=== PATIENT | female | born 1985 | race Caucasian/White ===

== ENCOUNTER 2017-04-07 16:53 | Emergency (ER) | payer OTHER ==
[~2017-04-07] VITALS: Ht 162.6 cm; Wt 81.6 kg
[2017-04-07] MEDS ORDERED: PANTOPRAZOLE IV PUSH 40 MG VIAL. IVP ONE (17:15)
[2017-04-07] MEDS ORDERED: LIDO:MAALOX 1:1 20 ML SINGLE DOSE PO ONE (17:15)
--- NOTE | 2017-04-07 17:42 | PHYS DOC ---
Past History Past Medical History: Anxiety, Depression, Kidney Stones Past Surgical History: Other Alcohol Use: None Drug Use: None Adult General Chief Complaint Chief Complaint: ABDOMINAL PAIN HPI HPI Patient is a 32-year-old female presenting to the emergency department for evaluation of abdominal pain nausea that has been going on for approximately one month. Patient says it is more generalized in her umbilical area and goes up into her epigastrium and chest as well. Eating and that foods make it worse. Is that it felt quite intense today after eating sonic and that she had referred pain into her right scapular region. She has nausea but no vomiting and says she feels somewhat better now. Been taking Zantac twice daily along with Tums and Maalox in says that she is concerned may be something else going on as this is not quite helping enough. He denies any fevers chills diarrhea constipation dysuria hematuria or abnormal vaginal discharge. Says that her periods have been somewhat more heavy over the past several months. She has had 3 C-sections but no other abdominal surgeries. She is nontoxic appearing in no obvious distress with normal vital signs. Review of Systems Review of Systems Constitutional: Denies fever or chills [] Respiratory: Denies cough or shortness of breath [] Cardiovascular: No additional information not addressed in HPI [] GI: + abdominal pain, nausea. No vomiting, bloody stools or diarrhea [] : Denies dysuria or hematuria [] Musculoskeletal: Denies back pain or joint pain [] Current Medications Current Medications Current Medications Medications (Trade) Dose Ordered Sig/[facility] Start Time Stop Time Status Last Admin Dose Admin Multi-Ingredient Mouthwash/Gargle (Gi Cocktail) 20 ml 1X ONCE 04/07/17 17:15 04/07/17 17:16 UNV Pantoprazole Sodium (Protonix Vial) 40 mg 1X ONCE 04/07/17 17:15 04/07/17 17:16 UNV Physical Exam Physical Exam Constitutional: Well developed, well nourished, no acute distress, non-toxic appearance. [] Cardiovascular:Heart rate regular rhythm, no murmur [] Lungs & Thorax: Bilateral breath sounds clear to auscultation [] Abdomen: Bowel sounds normal, soft, positive upper abdominal tenderness most prominent in the epigastrium and right upper quadrant, no rebound or guarding, no masses, no pulsatile masses. [] Skin: Warm, dry, no erythema, no rash. [] Back: No tenderness, no CVA tenderness. [] Current Patient Data Vital Signs Vital Signs Date Time Temp Pulse Resp B/P (MAP) Pulse Ox O2 Delivery O2 Flow Rate FiO2 04/07/17 17:04 98.0 82 22 100 Lab Results Laboratory Tests Test 04/07/17 14:49 04/07/17 17:12 04/07/17 17:28 White Blood Count 8.6 x10^3/uL Red Blood Count 4.48 x10^6/uL Hemoglobin 12.4 g/dL Hematocrit 37.2 % Mean Corpuscular Volume 83 fL Mean Corpuscular Hemoglobin 28 pg Mean Corpuscular Hemoglobin Concent 34 g/dL Red Cell Distribution Width 15.2 % Platelet Count 291 x10^3/uL Neutrophils (%) (Auto) 54 % Lymphocytes (%) (Auto) 38 % Monocytes (%) (Auto) 7 % Eosinophils (%) (Auto) 1 % Basophils (%) (Auto) 1 % Neutrophils # (Auto) 4.6 x10^3uL Lymphocytes # (Auto) 3.3 x10^3/uL Monocytes # (Auto) 0.6 x10^3/uL Eosinophils # (Auto) 0.1 x10^3/uL Basophils # (Auto) 0.1 x10^3/uL Sodium Level 138 mmol/L Potassium Level 3.7 mmol/L Chloride Level 104 mmol/L Carbon Dioxide Level 21 mmol/L Anion Gap 13 Blood Urea Nitrogen 13 mg/dL Creatinine 0.8 mg/dL Estimated GFR (Cockcroft-Gault) 82.6 BUN/Creatinine Ratio 16 Glucose Level 107 mg/dL Calcium Level 9.3 mg/dL Total Bilirubin 0.2 mg/dL Aspartate Amino Transf (AST/SGOT) 25 U/L Alanine Aminotransferase (ALT/SGPT) 18 U/L Alkaline Phosphatase 66 U/L Total Protein 7.2 g/dL Albumin 3.7 g/dL Albumin/Globulin Ratio 1.1 Lipase 154 U/L Urine Collection Type Unknown Urine Color Yellow Urine Clarity Hazy Urine pH 8.5 Urine Specific [place] 1.015 Urine Protein Neg Urine Glucose (UA) Neg mg/dL Urine Ketones (Stick) Neg mg/dL Urine Blood Neg Urine Nitrite Neg Urine Bilirubin Neg Urine Urobilinogen Dipstick 0.2 mg/dL Urine Leukocyte Esterase Trace Urine RBC 3-5 /HPF Urine WBC 5-10 /HPF Urine Squamous Epithelial Cells Many /LPF Urine Amorphous Sediment Present /HPF Urine Bacteria Few /HPF Bedside Urine HCG, Qualitative hcg negative Current Medications Medications (Trade) Dose Ordered Sig/Rekha Route PRN Reason Start Time Stop Time Status Last Admin Dose Admin Multi-Ingredient Mouthwash/Gargle (Gi Cocktail) 20 ml 1X ONCE PO 04/07/17 17:15 04/07/17 18:21 DC 04/07/17 17:57 Pantoprazole Sodium (Protonix Vial) 40 mg 1X ONCE IVP 04/07/17 17:15 04/07/17 18:21 DC 04/07/17 17:56 Sodium Chloride 1,000 ml @ As Directed STK-MED ONCE .ROUTE 04/07/17 17:48 04/07/17 17:49 DC Sodium Chloride 1,000 ml @ 1,000 mls/hr 1X ONCE IV 04/07/17 18:00 04/07/17 18:59 DC 04/07/17 17:56 Laboratory Tests Test 04/07/17 17:28 POC Urine HCG, Qualitative hcg negative (Negative) EKG EKG Not performed[] Radiology/Procedures Radiology/[place] [address] IMAGING REPORT Signed PATIENT: ISMAEL LEVI ACCOUNT: [id number] : 1985 LOCATION: ER AGE: 32 SEX: F EXAM STATUS: REG ER ORD. PHYSICIAN: CHELSIE LUIS DO REASON: RUQ PAIN PROCEDURE: ABDOMEN LTD EXAM: Abdomen sonogram limited. HISTORY: Pain. TECHNIQUE: Sonographic imaging of the abdomen was performed. COMPARISON: None. FINDINGS: The liver is normal in size. No focal hepatic lesion is seen. The gallbladder is unremarkable. The common bile duct is normal in caliber. The right kidney, pancreas, and inferior vena cava are unremarkable. The aorta is not formally assessed. IMPRESSION: 1. Upper normal common bile duct caliber. 2. Otherwise, unremarkable abdomen sonogram. Electronically signed by: Maryanne Carrizales MD (04/07/2017 7:16 PM) [facility] DICTATED AND SIGNED BY: MARYANNE CARRIZALES MD DATE: 04/07/171913 CC: SHAMA RODRIGUEZ MD; NON,STAFF; CHELSIE LUIS DO ~ [] Course & Med Decision Making Course & Med Decision Making Symptoms are most consistent with gastritis and/or esophagitis my opinion. I do not suspect gallbladder pathology although this is what the patient is concerned about. Will get ultrasound and check labs and urine at this time. If negative can likely go home I recommended trying Prilosec twice daily instead of Zantac with GI follow-up as she may have H. pylori or an ulcerative disease. Given ultrasound and labs are still pending will transfer care to Dr. Rodriguez while awaiting results of tests. Addendum by Dr. Shama Rodriguez M.D.: I took over care patient at 1805. I followed up with the patient's blood testing and ultrasound imaging. Patient showed no evidence of cholelithiasis. Patient's lab work shows no evidence of hepatitis or pancreatitis. On my evaluation, patient states that her symptoms have significantly improved after GI cocktail. The patient states she feels well and would like to go home. Recommended follow-up with the patient's primary doctor in 3 days for reevaluation and recommended that patient likely receive referral to a hoop punch and coiler operator helper for further evaluation in the next 1-2 weeks. I commended return emergency department for any worsening symptoms. Advised the patient started on twice a day Prilosec therapy until patient has followed up with gastroenterology. The patient voiced understanding and in agreement with treatment plan upon discharge. Dragon Disclaimer Dragon Disclaimer This chart was dictated in whole or in part using Voice Recognition software in a busy, high-work load, and often noisy Emergency Department environment. It may contain unintended and wholly unrecognized errors or omissions. Departure Departure: Impression: Primary Impression: Abdominal pain Additional Impression: Nausea alone Disposition: HOME, SELF-CARE Condition: IMPROVED Referrals: NON,STAFF (PCP) Patient Instructions: Abdominal Pain (Nonspecific) Additional Instructions: Follow-up he primary doctor in 3 days for reevaluation. You will need to schedule an appointment with gastroenterology in the next 1-2 weeks for further evaluation of the etiology of your pain as it is suspected you have continued gastritis or even possible peptic ulcer disease. Use Prilosec twice daily as recommended until you have obtained gastroenterology follow-up. Return to the emergency department for any worsening symptoms. Scripts Omeprazole Magnesium (PRILOSEC OTC) 20 Mg Tablet.dr 1 TAB PO BID, #60 TAB 0 Refills Prov: SHAMA RODRIGUEZ MD 04/07/17 Problem Qualifiers Primary Impression: Abdominal pain Abdominal location: upper abdomen, unspecified Qualified Codes: R10.10 - Upper abdominal pain, unspecified CHELSIE LUIS DO Apr 07, 2017 17:42 SHAMA RODRIGUEZ MD Apr 07, 2017 19:45
[2017-04-07] MEDS ORDERED: IV NORMAL SALINE 1,000ML 1,000 ML ONE (17:48)
[2017-04-07] MEDS ORDERED: IV NORMAL SALINE 1,000ML 1,000 ML IV ONE (18:00)
[2017-04-07 18:12] LABS: BASO # 0.1 x10^3/uL (0.0-0.2); BASO % 1 % (0-3); EOS # 0.1 x10^3/uL (0.0-0.7); EOS % 1 % (0-3); HEMATOCRIT 37.2 % (36.0-47.0); HEMOGLOBIN 12.4 g/dL (12.0-15.5); LYMPH # 3.3 x10^3/uL (1.0-4.8); LYMPH % 38 % (24-48); MEAN CORPUSCULAR HEMOGLOBIN 28 pg (25-35); MEAN CORPUSCULAR HGB CONC 34 g/dL (31-37); MEAN CORPUSCULAR VOLUME 83 fL (79-100); MONO # 0.6 x10^3/uL (0.0-1.1); MONO % 7 % (0-9); NEUT # 4.6 x10^3uL (1.8-7.7); NEUT % 54 % (31-73); PLATELET COUNT 291 x10^3/uL (140-400); RED BLOOD COUNT 4.48 x10^6/uL (3.50-5.40); RED CELL DISTRIBUTION WIDTH 15.2 % (11.5-14.5); WHITE BLOOD COUNT 8.6 x10^3/uL (4.0-11.0)
[2017-04-07 18:19] LABS: BILIRUBIN,URINE NEG (NEG); CLARITY,URINE HAZY; COLOR,URINE YELLOW; GLUCOSE,URINE NEG (NEG)
[2017-04-07 18:20] LABS: NITRITE,URINE NEG (NEG); UROBILINOGEN,URINE 0.2 mg/dL (0.2 mg/dL)
[2017-04-07 18:21] LABS: ALBUMIN 3.7 g/dL (3.4-5.0); ALBUMIN/GLOBULIN RATIO 1.1 (1.0-1.7); CALCIUM 9.3 mg/dL (8.5-10.1); CREATININE 0.8 mg/dL (0.6-1.0); GFR 82.6; POTASSIUM 3.7 mmol/L (3.5-5.1); TOTAL BILIRUBIN 0.2 mg/dL (0.2-1.0); TOTAL PROTEIN 7.2 g/dL (6.4-8.2)
[2017-04-07 18:28] LABS: BACTERIA,URINE FEW /HPF (0-FEW); SQUAMOUS EPITHELIAL CELL,UR MANY /LPF
[2017-04-07 18:29] LABS: AMORPHOUS SEDIMENT,UR PRESENT /HPF
[2017-04-07 18:33] VITALS: BP 117/63
--- NOTE | 2017-04-07 19:19 | RAD ---
EXAM: Abdomen sonogram limited. HISTORY: Pain. TECHNIQUE: Sonographic imaging of the abdomen was performed. COMPARISON: None. FINDINGS: The liver is normal in size. No focal hepatic lesion is seen. The gallbladder is unremarkable. The common bile duct is normal in caliber. The right kidney, pancreas, and inferior vena cava are unremarkable. The aorta is not formally assessed. IMPRESSION: 1. Upper normal common bile duct caliber. 2. Otherwise, unremarkable abdomen sonogram. Electronically signed by: Maryanne Mendez MD (04/07/2017 7:16 PM) [facility]
[2017-04-07] MEDS ORDERED: OMEP20TA63 PO (19:45)
== END 2017-04-07 19:56 | disposition home or self-care (01) ==
LOC: ER 16:53
DX: R10.33 Periumbilical pain (principal); R10.11 Right upper quadrant pain; R11.0 Nausea; Z87.442 Personal history of urinary calculi
CPT/HCPCS: 36415; 76705; 80053; 81001; 81025; 83690; 85025; 87086; 96361; 96374; 99285; C9113; J7030

== ENCOUNTER 2017-08-26 08:22 | Emergency (ER) | payer OTHER ==
[~2017-08-26] VITALS: Ht 170.2 cm; Wt 83.0 kg
[~2017-08-26 08:22] MED LIST: OMEP20TA63 PO
[2017-08-26 08:36] VITALS: BP 144/76
[2017-08-26] MEDS ORDERED: IV NORMAL SALINE 1,000ML 1,000 ML IV SCH (09:03)
--- NOTE | 2017-08-26 09:25 | RAD ---
EXAM: Chest, 2 views. HISTORY: Weakness. COMPARISON: None. FINDINGS: Frontal and lateral views of the chest are obtained. There is no infiltrate, effusion or pneumothorax. The heart is normal in size. IMPRESSION: No acute pulmonary finding.
--- NOTE | 2017-08-26 09:33 | PHYS DOC ---
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 Patient states that she's had intermittent mild headaches, generalized fatigue and somnolence symptoms, dizziness, and anhedonia for the past week. 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 SIGECAPS grossly positive for depression denies suicidal or homicidal ideation. Patient has history of anemia and thinks that may be the cause of her symptoms. No chest pain shortness of breath fever chills sweats or myalgias no nausea vomiting or diarrhea no other symptoms. ED vital signs are stable Timing/Duration: other Severity: severe Modifying Factors: worse with movement, improves with rest Associated Symptoms: other Allergies: Coded Allergies: No Known Drug Allergies (Unverified , 04/07/17) Past Medical History Medical History: other (anemia, anxiety, depression) Surgical History: noncontributory Social History Smoker: non-smoker Alcohol: none Drugs: none Review of Systems Constitutional: see HPI Respiratory: denies cough, denies shortness of breath Cardiovascular: denies chest pain, denies palpitations Gastrointestinal: denies abdominal pain, denies nausea, denies vomiting Genitourinary: denies dysuria, denies frequency, denies hematuria Musculoskeletal: denies back pain, denies joint swelling, denies neck pain Psychiatric/Neurological: see HPI Physical Exam General Appearance: WD/WN, no apparent distress Eyes: bilateral eye normal inspection, bilateral eye PERRL, bilateral eye EOMI Ear, Nose, Throat: hearing grossly normal, normal ENT inspection, normal pharynx Neck: non-tender, supple Respiratory: normal breath sounds, no respiratory distress Cardiovascular: normal peripheral pulses, regular rate, rhythm Gastrointestinal: non tender, soft Back: no CVA tenderness, no vertebral tenderness Extremities: non-tender, normal inspection Neurologic/Psychiatric: supervisor plastering II-XII nml as tested, no motor/sensory deficits, alert, oriented x 3, depressed affect, other (denies suicidal or homicidal ideation) Skin: normal color, warm/dry Orders, Labs, Meds EKG: Normal sinus rhythm 70 bpm, nonspecific T contour abnormality no ST segment elevation. Interpreted by me. PATIENT: ISMAEL LEVI ACCOUNT: [id number] : 1985 LOCATION: ER AGE: 32 SEX: F EXAM STATUS: REG ER ORD. PHYSICIAN: CARIDAD SANTAMARIA DO REASON: weak PROCEDURE: CHEST PA & LATERAL EXAM: Chest, 2 views. HISTORY: Weakness. COMPARISON: None. FINDINGS: Frontal and lateral views of the chest are obtained. There is no infiltrate, effusion or pneumothorax. The heart is normal in size. IMPRESSION: No acute pulmonary finding. DICTATED AND SIGNED BY: ELINOR CARRIZALES MD DATE: 08/26/17922 CC: NON,STAFF; CARIDAD SANTAMARIA DO ~ Squamous cell contamination with products of infection noted in the urine. Patient would like to be treated versus waiting for culture I discussed findings in detail with the patient. Advised her to follow up with her doctor to check for vitamin deficiencies as well as thyroid disease. Also discussed exercise and possible counseling or depression treatment. Signs and symptoms to monitor as well as indications for urgent return to the department were discussed the patient's questions were answered she expressed agreement and understanding with the treatment plan. Departure Time of Disposition: 11:24 Disposition: HOME, SELF-CARE Diagnosis: UTI, generalized fatigue, mood disorder Condition: STABLE Patient Instructions: Urinary Tract Infection, [id number] Additional Instructions: Aggressively hydrate with Gatorade or water. Fzym-ghk-[id number] Tylenol as needed. Prescription: Bactrim DS, Pyridium Off work today and tomorrow, note given. Follow-up with your doctor on Monday for recheck of current symptoms and to discuss TSH, vitamin levels, and other further testing as an outpatient. Return to ED with new or changing symptoms. CARIDAD SANTAMARIA DO Aug 26, 2017 09:32
[2017-08-26 10:04] LABS: BASO # 0.1 x10^3/uL (0.0-0.2); BASO % 1 % (0-3); EOS # 0.1 x10^3/uL (0.0-0.7); EOS % 1 % (0-3); HEMATOCRIT 36.7 % (36.0-47.0); HEMOGLOBIN 12.1 g/dL (12.0-15.5); LYMPH # 2.9 x10^3/uL (1.0-4.8); LYMPH % 45 % (24-48); MEAN CORPUSCULAR HEMOGLOBIN 28 pg (25-35); MEAN CORPUSCULAR HGB CONC 33 g/dL (31-37); MEAN CORPUSCULAR VOLUME 83 fL (79-100); MONO # 0.5 x10^3/uL (0.0-1.1); MONO % 7 % (0-9); NEUT % 46 % (31-73); PLATELET COUNT 257 x10^3/uL (140-400); RED BLOOD COUNT 4.42 x10^6/uL (3.50-5.40); RED CELL DISTRIBUTION WIDTH 15.6 % (11.5-14.5); WHITE BLOOD COUNT 6.5 x10^3/uL (4.0-11.0)
[2017-08-26 10:13] LABS: BACTERIA,URINE FEW /HPF (0-FEW); BILIRUBIN,URINE NEG (NEG); CLARITY,URINE CLEAR; COLOR,URINE YELLOW; GLUCOSE,URINE NEG (NEG); NITRITE,URINE NEG (NEG); SQUAMOUS EPITHELIAL CELL,UR FEW /LPF; UROBILINOGEN,URINE 0.2 mg/dL (0.2 mg/dL)
[2017-08-26 11:05] LABS: ALBUMIN 3.3 g/dL (3.4-5.0); ALBUMIN/GLOBULIN RATIO 0.9 (1.0-1.7); C REACTIVE PROTEIN 3.7 mg/L (0-3.3); CALCIUM 8.7 mg/dL (8.5-10.1); CREATININE 0.8 mg/dL (0.6-1.0); GFR 82.6; MAGNESIUM 1.8 mg/dL (1.8-2.4); POTASSIUM 4.3 mmol/L (3.5-5.1); TOTAL BILIRUBIN 0.1 mg/dL (0.2-1.0); TOTAL PROTEIN 6.8 g/dL (6.4-8.2)
--- NOTE | 2017-08-26 11:06 | EKG ---
[address] [address] Test Date: 2017-08-26 Test Time: 10:44:21 Pat Name: ISMAEL LEVI Department: Room: Gender: F Glycerin Operator: LUPE : 1985 Requested By: CARIDAD SANTAMARIA Order Number: [id number] Reading MD: Hayder Burt MD Measurements Intervals [place] Rate: 70 P: 41 NV: 174 QRS: 56 QRSD: 90 T: 26 QT: 414 QTc: 450 Interpretive Statements SINUS RHYTHM Electronically Signed On 09-03-2017 23:43:19 VOLCANOLOGY TEACHER by Hayder Burt MD
[2017-08-26] MEDS ORDERED: KETOROLAC 30 MG/ML VIAL. ONE (11:17)
[2017-08-26] MEDS ORDERED: PHEN100T82 PO (11:24)
[2017-08-26] MEDS ORDERED: SULF1TAB24 PO (11:24)
== END 2017-08-26 11:52 | disposition home or self-care (01) ==
LOC: ER 08:22
DX: R53.83 Other fatigue (principal); N39.0 Urinary tract infection, site not specified; R51 Headache; F39 Unspecified mood [affective] disorder; F41.9 Anxiety disorder, unspecified; F32.9 Major depressive disorder, single episode, unspecified; Z86.2 Personal history of diseases of the blood and blood-forming organs and certain disorders involving the immune mechanism
CPT/HCPCS: 36415; 71046; 80053; 81001; 82550; 83735; 84484; 85025; 86140; 87086; 93005; 96360; 99285-25; J7030

== ENCOUNTER 2018-04-15 10:51 | Emergency (ER) | payer OTHER ==
[~2018-04-15] VITALS: Ht 170.2 cm; Wt 82.6 kg
[~2018-04-15 10:51] MED LIST changes: +PHEN100T82 PO; +SULF1TAB24 PO
[2018-04-15] MEDS ORDERED: CITA40TA12 PO (11:01)
[2018-04-15] MEDS ORDERED: ALPR0.25 PO (11:01)
[2018-04-15] MEDS ORDERED: QUET25TA5 PO (11:01)
[2018-04-15] MEDS ORDERED: IV NORMAL SALINE 1,000ML 1,000 ML IV ONE (11:15)
[2018-04-15] MEDS ORDERED: KETOROLAC 30 MG/ML VIAL. IV ONE (11:45)
[2018-04-15] MEDS ORDERED: METOCLOPRAMIDE HCL 10 MG/2 ML VIAL. IV ONE (11:45)
[2018-04-15] MEDS ORDERED: DEXAMETHASONE SOD PHOS 4 MG/ML VIAL IV ONE (11:45)
[2018-04-15 11:50] LABS: BASO # 0.1 x10^3/uL (0.0-0.2); BASO % 1 % (0-3); EOS # 0.1 x10^3/uL (0.0-0.7); EOS % 1 % (0-3); HEMATOCRIT 37.6 % (36.0-47.0); HEMOGLOBIN 12.9 g/dL (12.0-15.5); LYMPH # 2.3 x10^3/uL (1.0-4.8); LYMPH % 37 % (24-48); MEAN CORPUSCULAR HEMOGLOBIN 29 pg (25-35); MEAN CORPUSCULAR HGB CONC 34 g/dL (31-37); MEAN CORPUSCULAR VOLUME 86 fL (79-100); MONO # 0.4 x10^3/uL (0.0-1.1); MONO % 7 % (0-9); NEUT # 3.4 x10^3uL (1.8-7.7); NEUT % 55 % (31-73); PLATELET COUNT 257 x10^3/uL (140-400); RED BLOOD COUNT 4.38 x10^6/uL (3.50-5.40); RED CELL DISTRIBUTION WIDTH 13.5 % (11.5-14.5); WHITE BLOOD COUNT 6.3 x10^3/uL (4.0-11.0)
[2018-04-15 11:54] LABS: CALCIUM 9.3 mg/dL (8.5-10.1); CREATININE 0.9 mg/dL (0.6-1.0); GFR 71.7; POTASSIUM 3.9 mmol/L (3.5-5.1)
[2018-04-15 12:09] VITALS: BP 99/48
[2018-04-15] MEDS ORDERED: ONDA4TAB10 SL (12:31)
[2018-04-15] MEDS ORDERED: BUTA1CAP31 PO (12:31)
--- NOTE | 2018-04-15 12:31 | PHYS DOC ---
Past History Past Medical History: Anemia, Anxiety, Depression, Kidney Stones Past Surgical History: Alcohol Use: None Drug Use: None Adult General Chief Complaint Chief Complaint: HEADACHE HPI HPI Patient is a 33 year old female who presents with complaining of headache. Patient states she has had history of migraine headaches and complaining of headache for the last 3 days as a constant pain in the bitemporal and frontal area associated with nausea , photophobia and phonophobia. Patient denies fever and chills, neck pain, focal neuro deficit. Patient states she usually gets headache only on her frontal area. Patient states she took wtsi-ntz-[id number] migraine medication without improvement of her pain unlike her usual episodes of migraine headache. Patient rated her pain 8/10. Review of Systems Review of Systems Constitutional: Denies fever or chills [] Eyes: Denies change in visual acuity, redness, or eye pain [] HENT: Denies nasal congestion or sore throat [] Respiratory: Denies cough or shortness of breath [] Cardiovascular: No additional information not addressed in HPI [] GI: Denies abdominal pain, vomiting, bloody stools or diarrhea, reports nausea : Denies dysuria or hematuria [] Musculoskeletal: Denies back pain or joint pain [] Integument: Denies rash or skin lesions [] Neurologic: Reports headache, denies focal weakness or sensory changes [] Endocrine: Denies polyuria or polydipsia [] All other systems were reviewed and found to be within normal limits, except as documented in this note. Current Medications Current Medications Current Medications Medications (Trade) Dose Ordered Sig/Rekha Start Time Stop Time Status Last Admin Dose Admin Dexamethasone Sodium Phosphate (Decadron) 4 mg 1X ONCE 04/15/18 11:45 04/15/18 11:46 DC 04/15/18 11:27 4 MG Ketorolac Tromethamine (Toradol 30mg Vial) 30 mg 1X ONCE 04/15/18 11:45 04/15/18 11:46 DC 04/15/18 11:27 30 MG Metoclopramide HCl (Reglan Vial) 10 mg 1X ONCE 04/15/18 11:45 04/15/18 11:46 DC 04/15/18 11:26 10 MG Sodium Chloride 1,000 ml @ 1,000 mls/hr 1X ONCE 04/15/18 11:15 04/15/18 12:14 DC 04/15/18 11:37 1,000 MLS/HR Allergies Allergies Allergies Coded Allergies Type Severity Reaction Last Updated Verified No Known Drug Allergies 04/07/17 No Physical Exam Physical Exam Constitutional: Well developed, well nourished, mild distress, non-toxic appearance. [] HENT: Normocephalic, atraumatic, bilateral external ears normal, oropharynx moist, no oral exudates, nose normal. [] Eyes: PERRLA, EOMI, conjunctiva normal, no discharge. [] Neck: Normal range of motion, no tenderness, supple, no stridor. [] Cardiovascular:Heart rate regular rhythm, no murmur [] Lungs & Thorax: Bilateral breath sounds clear to auscultation [] Abdomen: Bowel sounds normal, soft, no tenderness, no masses, no pulsatile masses. [] Skin: Warm, dry, no erythema, no rash. [] Back: No tenderness, no CVA tenderness. [] Extremities: No tenderness, no cyanosis, no clubbing, ROM intact, no edema. [] Neurologic: Alert and oriented X 3, normal motor function, normal sensory function, no focal deficits noted. [] Psychologic: Affect normal, judgement normal, mood normal. [] Current Patient Data Vital Signs Vital Signs Date Time Temp Pulse Resp B/P (MAP) Pulse Ox O2 Delivery O2 Flow Rate FiO2 04/15/18 10:53 98.0 84 16 100 Room Air Lab Results Laboratory Tests Test 04/15/18 11:35 White Blood Count 6.3 x10^3/uL (4.0-11.0) Red Blood Count 4.38 x10^6/uL (3.50-5.40) Hemoglobin 12.9 g/dL (12.0-15.5) Hematocrit 37.6 % (36.0-47.0) Mean Corpuscular Volume 86 fL (79-100) Mean Corpuscular Hemoglobin 29 pg (25-35) Mean Corpuscular Hemoglobin Concent 34 g/dL (31-37) Red Cell Distribution Width 13.5 % (11.5-14.5) Platelet Count 257 x10^3/uL (140-400) Neutrophils (%) (Auto) 55 % (31-73) Lymphocytes (%) (Auto) 37 % (24-48) Monocytes (%) (Auto) 7 % (0-9) Eosinophils (%) (Auto) 1 % (0-3) Basophils (%) (Auto) 1 % (0-3) Neutrophils # (Auto) 3.4 x10^3uL (1.8-7.7) Lymphocytes # (Auto) 2.3 x10^3/uL (1.0-4.8) Monocytes # (Auto) 0.4 x10^3/uL (0.0-1.1) Eosinophils # (Auto) 0.1 x10^3/uL (0.0-0.7) Basophils # (Auto) 0.1 x10^3/uL (0.0-0.2) Sodium Level 138 mmol/L (136-145) Potassium Level 3.9 mmol/L (3.5-5.1) Chloride Level 105 mmol/L (98-107) Carbon Dioxide Level 24 mmol/L (21-32) Anion Gap 9 (6-14) Blood Urea Nitrogen 14 mg/dL (7-20) Creatinine 0.9 mg/dL (0.6-1.0) Estimated GFR (Cockcroft-Gault) 71.7 Glucose Level 108 mg/dL (70-99) H Calcium Level 9.3 mg/dL (8.5-10.1) EKG EKG [] Radiology/Procedures Radiology/Procedures [] Course & Med Decision Making Course & Med Decision Making Pertinent Labs reviewed. (See chart for details) Evaluation of patient in ER showed 33-year-old female patient with history of migraine headaches presented to ER with headache for 3 days that getting get better with acet-rdf-gokiucs medication. Patient had unremarkable physical exam and labs and felt better with IV fluid, Reglan, Toradol and dexamethasone. Plan discharge patient home with prescription of Fiorinal action follow-up with her primary care physician. Dragon Disclaimer Dragon Disclaimer This electronic medical record was generated, in whole or in part, using a voice recognition dictation system. Departure Departure: Impression: Primary Impression: Migraine headache Disposition: HOME, SELF-CARE (at 1228) Condition: IMPROVED Referrals: HUBERT BYRD MD (PCP) Patient Instructions: Migraine Headache Additional Instructions: Drink plenty of liquids Follow-up with your primary care physician in 3-5 days Return to ER if not getting better Scripts Ondansetron (ZOFRAN ODT) 4 Mg Tab.rapdis 1 TAB SL Q8HRS, #15 TAB Prov: NARAYAN STEPHENSON MD 04/15/18 Butalbital/Aspirin/Caffeine (FIORINAL 50-325-40 MG CAPSULE) 1 Each Capsule 1 EACH PO QID PRN for HEADACHE, #30 CAP Prov: NARAYAN STEPHENSON MD 04/15/18 NARAYAN STEPHENSON MD Apr 15, 2018 12:31
== END 2018-04-15 12:41 | disposition home or self-care (01) ==
LOC: ER 10:51
DX: G43.909 Migraine, unspecified, not intractable, without status migrainosus (principal); F41.9 Anxiety disorder, unspecified; F32.9 Major depressive disorder, single episode, unspecified; Z86.2 Personal history of diseases of the blood and blood-forming organs and certain disorders involving the immune mechanism; Z87.442 Personal history of urinary calculi
CPT/HCPCS: 36415; 80048; 85025; 96374; 96375; 99284; J1100; J1885; J2765; J7030

== ENCOUNTER 2018-07-27 11:49 | Emergency (ER) | payer OTHER ==
[~2018-07-27] VITALS: Ht 170.2 cm; Wt 81.6 kg
[~2018-07-27 11:49] MED LIST changes: +ALPR0.25 PO; +BUTA1CAP31 PO; +CITA40TA12 PO; +ONDA4TAB10 SL; +QUET25TA5 PO
[2018-07-27] MEDS ORDERED: ONDANSETRON PF 4 MG/2 ML VIAL. IV ONE (12:15)
[2018-07-27] MEDS ORDERED: KETOROLAC 30 MG/ML VIAL. IV ONE (12:15)
[2018-07-27 12:27] LABS: BACTERIA,URINE 0 /HPF (0-FEW); BILIRUBIN,URINE NEG (NEG); CLARITY,URINE CLEAR; COLOR,URINE STRAW; GLUCOSE,URINE NEG (NEG); NITRITE,URINE NEG (NEG); RBC,URINE 0 /HPF (0-2); SQUAMOUS EPITHELIAL CELL,UR OCC /LPF; UROBILINOGEN,URINE 0.2 mg/dL (0.2 mg/dL); WBC,URINE RARE /HPF (0-4)
--- NOTE | 2018-07-27 12:41 | PHYS DOC ---
Past History Past Medical History: Anemia, Anxiety, Depression, Kidney Stones Past Surgical History: Alcohol Use: None Drug Use: None Adult General Chief Complaint Chief Complaint: PELVIC PAIN HPI HPI Patient is a 33-year-old female who presents with complaint of right-sided flank pain that started this morning. Patient states that she has been having pelvic pain on and off for the last couple weeks and was seen over at the urgent care where urine was obtained to see if she has a UTI. Patient states that she just got a phone call back indicating that she does not have UTI. She states that this morning she started having pain in her back and it was reminiscent of when she's had kidney stones in the past. She states that at its worst the pain was about a 6 out of 10 but currently is a 2 out of 10. She does admit to some nausea but is had no vomiting. Review of Systems Review of Systems Constitutional: Denies fever or chills [] Respiratory: Denies cough or shortness of breath [] Cardiovascular: No additional information not addressed in HPI [] GI: Complains of lower abdominal pain with nausea. Denies vomiting or diarrhea [ ] : Denies dysuria or hematuria [] Musculoskeletal: Complains of right-sided back pain [] Integument: Denies rash or skin lesions [] All other systems were reviewed and found to be within normal limits, except as documented in this note. Current Medications Current Medications Current Medications Medications (Trade) Dose Ordered Sig/Rekha Start Time Stop Time Status Last Admin Dose Admin Ketorolac Tromethamine (Toradol 30mg Vial) 30 mg 1X ONCE 07/27/18 12:15 07/27/18 12:20 DC 07/27/18 12:31 30 MG Ondansetron HCl (Zofran) 4 mg 1X ONCE 07/27/18 12:15 07/27/18 12:20 DC 07/27/18 12:30 4 MG Allergies Allergies Allergies Coded Allergies Type Severity Reaction Last Updated Verified No Known Drug Allergies 04/07/17 No Physical Exam Physical Exam Constitutional: Well developed, well nourished, no acute distress, non-toxic appearance. [] HENT: Normocephalic, atraumatic, bilateral external ears normal, oropharynx moist, no oral exudates, nose normal. [] Eyes: PERRLA, EOMI, conjunctiva normal, no discharge. [] Neck: Normal range of motion, no tenderness, supple, no stridor. [] Cardiovascular: Regular rate and rhythm [] Lungs & Thorax: Bilateral breath sounds clear to auscultation [] Abdomen: Bowel sounds normal, soft, with only mild right lower abdominal tenderness. [] Skin: Warm, dry, no erythema, no rash. [] Extremities: No tenderness, no cyanosis, no clubbing, ROM intact, no edema. [] Neurologic: Alert and oriented X 3 no focal deficits noted. [] Current Patient Data Vital Signs Vital Signs Date Time Temp Pulse Resp B/P (MAP) Pulse Ox O2 Delivery O2 Flow Rate FiO2 07/27/18 11:49 98.0 79 18 98 Room Air Lab Results Laboratory Tests Test 07/27/18 12:00 07/27/18 12:11 Urine Collection Type Unknown Urine Color Straw Urine Clarity Clear Urine pH 7.0 Urine Specific [place] 1.010 Urine Protein Neg (NEG-TRACE) Urine Glucose (UA) Neg mg/dL (NEG) Urine Ketones (Stick) Neg mg/dL (NEG) Urine Blood Trace (NEG) Urine Nitrite Neg (NEG) Urine Bilirubin Neg (NEG) Urine Urobilinogen Dipstick 0.2 mg/dL (0.2 mg/dL) Urine Leukocyte Esterase Neg (NEG) Urine RBC 0 /HPF (0-2) Urine WBC Rare /HPF (0-4) Urine Squamous Epithelial Cells Occ /LPF Urine Bacteria 0 /HPF (0-FEW) POC Urine HCG, Qualitative hcg negative (Negative) EKG EKG [] Radiology/Procedures Radiology/Procedures [] Impressions: CT Abdomen and Pelvis without contrast History: Right flank pain, history of stones Technique: Noncontrast CT imaging was performed of the abdomen and pelvis. Multiplanar images are reviewed. Exposure: One or more of the following individualized dose reduction techniques were utilized for this examination: 1. Automated exposure control 2. Adjustment of the mA and/or kV according to patient size 3. Use of iterative reconstruction technique. Comparison: None Findings: There is very mild right hydroureteronephrosis although no ureteral calculus identified. There are 3 right renal calculi, largest inferiorly about 8 to 9 mm. There are 2 left renal calculi with the largest inferiorly about 7-8 mm. There is no perinephric fluid collection. Accurate evaluation of abdominal visceral organs is limited without intravenous contrast. There is no obvious abnormality of the spleen, liver, or pancreas. There is no adrenal nodularity. Gallbladder is present without obvious intraluminal abnormality by CT. No significantly enlarged nodes are identified. Accurate evaluation of bowel is limited without oral contrast. There is no significant free air, free fluid, bowel dilatation. Normal appendix is visualized. There is retained stool throughout colon. There is hypodense lesion of the right adnexa about 28 mm. Impression: 1. There is very mild right hydroureteronephrosis although no ureteral calculus identified. There are bilateral renal calculi. 2. There is likely cyst of the right adnexa. There is no CT evidence of acute appendicitis. Electronically signed by: Gabriel Moise MD (07/27/2018 12:46 PM) [id number] Course & Med Decision Making Course & Med Decision Making Pertinent Labs and Imaging studies reviewed. (See chart for details) [] Dragon Disclaimer Dragon Disclaimer This electronic medical record was generated, in whole or in part, using a voice recognition dictation system. Departure Departure: Impression: Primary Impression: Renal colic on right side Disposition: 01 HOME, SELF-CARE Condition: STABLE Referrals: HUBERT BYRD MD (PCP) Patient Instructions: Kidney Stones Scripts Ketorolac Tromethamine (KETOROLAC TROMETHAMINE) 10 Mg Tablet 1 TAB PO PRN Q6HRS PRN for PAIN, #20 TAB Prov: GISELA CHADWICK Jr. DO 07/27/18 Ondansetron Hcl (ZOFRAN) 4 Mg Tablet 1 TAB PO Q8HRS PRN for NAUSEA/VOMITING, #12 TAB Prov: GISELA CHADWICK Jr. DO 07/27/18 Oxycodone Hcl/Acetaminophen (PERCOCET 7.5-325 MG TABLET ) 1 Each Tablet 1 TAB PO PRN Q6HRS PRN for PAIN, #12 TAB Prov: GISELA CHADWICK Jr. DO 07/27/18 GISELA CHADWICK Jr. DO Jul 27, 2018 12:41
--- NOTE | 2018-07-27 12:51 | RAD ---
CT Abdomen and Pelvis without contrast History: Right flank pain, history of stones Technique: Noncontrast CT imaging was performed of the abdomen and pelvis. Multiplanar images are reviewed. Exposure: One or more of the following individualized dose reduction techniques were utilized for this examination: 1. Automated exposure control 2. Adjustment of the mA and/or kV according to patient size 3. Use of iterative reconstruction technique. Comparison: None Findings: There is very mild right hydroureteronephrosis although no ureteral calculus identified. There are 3 right renal calculi, largest inferiorly about 8 to 9 mm. There are 2 left renal calculi with the largest inferiorly about 7-8 mm. There is no perinephric fluid collection. Accurate evaluation of abdominal visceral organs is limited without intravenous contrast. There is no obvious abnormality of the spleen, liver, or pancreas. There is no adrenal nodularity. Gallbladder is present without obvious intraluminal abnormality by CT. No significantly enlarged nodes are identified. Accurate evaluation of bowel is limited without oral contrast. There is no significant free air, free fluid, bowel dilatation. Normal appendix is visualized. There is retained stool throughout colon. There is hypodense lesion of the right adnexa about 28 mm. Impression: 1. There is very mild right hydroureteronephrosis although no ureteral calculus identified. There are bilateral renal calculi. 2. There is likely cyst of the right adnexa. There is no CT evidence of acute appendicitis. Electronically signed by: Gabriel Moise MD (07/27/2018 12:46 PM) [id number]
[2018-07-27 12:54] LABS: BASO % 1 % (0-3); EOS # 0.1 x10^3/uL (0.0-0.7); EOS % 2 % (0-3); HEMATOCRIT 34.1 % (36.0-47.0); HEMOGLOBIN 11.3 g/dL (12.0-15.5); LYMPH # 2.6 x10^3/uL (1.0-4.8); LYMPH % 44 % (24-48); MEAN CORPUSCULAR HEMOGLOBIN 28 pg (25-35); MEAN CORPUSCULAR HGB CONC 33 g/dL (31-37); MEAN CORPUSCULAR VOLUME 84 fL (79-100); MONO # 0.4 x10^3/uL (0.0-1.1); MONO % 6 % (0-9); NEUT # 2.8 x10^3uL (1.8-7.7); NEUT % 48 % (31-73); PLATELET COUNT 272 x10^3/uL (140-400); RED BLOOD COUNT 4.05 x10^6/uL (3.50-5.40); RED CELL DISTRIBUTION WIDTH 13.6 % (11.5-14.5); WHITE BLOOD COUNT 5.9 x10^3/uL (4.0-11.0)
[2018-07-27 13:03] LABS: ALBUMIN 3.7 g/dL (3.4-5.0); ALBUMIN/GLOBULIN RATIO 1.1 (1.0-1.7); CALCIUM 8.9 mg/dL (8.5-10.1); CREATININE 0.8 mg/dL (0.6-1.0); GFR 82.1; POTASSIUM 3.6 mmol/L (3.5-5.1); TOTAL BILIRUBIN 0.2 mg/dL (0.2-1.0); TOTAL PROTEIN 7.2 g/dL (6.4-8.2)
[2018-07-27] MEDS ORDERED: ONDA4TAB7 PO (13:34)
[2018-07-27] MEDS ORDERED: KETO10TA PO (13:34)
[2018-07-27] MEDS ORDERED: OXYC1TAB19 PO (13:34)
[2018-07-27 13:40] VITALS: BP 129/72
== END 2018-07-27 13:40 | disposition home or self-care (01) ==
LOC: ER 11:49
DX: N13.2 Hydronephrosis with renal and ureteral calculous obstruction (principal); Z86.2 Personal history of diseases of the blood and blood-forming organs and certain disorders involving the immune mechanism; F41.9 Anxiety disorder, unspecified; F32.9 Major depressive disorder, single episode, unspecified; Z87.442 Personal history of urinary calculi; Z98.890 Other specified postprocedural states
CPT/HCPCS: 36415; 74176; 80053; 81001; 81025; 85025; 96374; 96375; 99284; J1885; J2405

== ENCOUNTER 2018-09-04 19:16 | Emergency (ER) | payer OTHER ==
[~2018-09-04] VITALS: Ht 170.2 cm; Wt 84.0 kg
[~2018-09-04 19:16] MED LIST changes: +KETO10TA PO; +ONDA4TAB7 PO; +OXYC1TAB19 PO
[2018-09-04 19:28] VITALS: BP 121/75
[2018-09-04] MEDS ORDERED: CYCLOBENZAPRINE 10 MG TABLET. ONE (19:54)
[2018-09-04] MEDS ORDERED: CYCL-331 PO (19:59)
[2018-09-04] MEDS: CYCLOBENZAPRINE 10 MG TABLET. PO ONE ×2 (20:00)
--- NOTE | 2018-09-04 20:01 | PHYS DOC ---
Adult General Chief Complaint Chief Complaint back pain HPI HPI 33 years old female presented to the emergency department with right flank pain radiates to her right buttock started after she twisted at work. Described as sharp constant pain worse when she bent over twist Review of Systems Review of Systems Constitutional: Denies fever or chills [] Eyes: Denies change in visual acuity, redness, or eye pain [] HENT: Denies nasal congestion or sore throat [] Respiratory: Denies cough or shortness of breath [] Cardiovascular: No additional information not addressed in HPI [] GI: Denies abdominal pain, nausea, vomiting, bloody stools or diarrhea [] : Denies dysuria or hematuria [] Musculoskeletal: joint pain [] Integument: Denies rash or skin lesions [] Neurologic: Denies headache, focal weakness or sensory changes [] Endocrine: Denies polyuria or polydipsia [] All other systems were reviewed and found to be within normal limits, except as documented in this note. Current Medications Current Medications Current Medications Medications (Trade) Dose Ordered Sig/Rekha Start Time Stop Time Status Last Admin Dose Admin Cyclobenzaprine HCl (Flexeril) 10 mg 1X ONCE 09/04/18 20:00 09/04/18 20:01 UNV Allergies Allergies Allergies Coded Allergies Type Severity Reaction Last Updated Verified No Known Drug Allergies 09/04/18 No Physical Exam Physical Exam Constitutional: Well developed, well nourished, no acute distress, non-toxic appearance. [] HENT: Normocephalic, atraumatic, bilateral external ears normal, oropharynx moist, no oral exudates, nose normal. [] Eyes: PERRLA, EOMI, conjunctiva normal, no discharge. [] Neck: Normal range of motion, no tenderness, supple, no stridor. [] Cardiovascular:Heart rate regular rhythm, no murmur [] Lungs & Thorax: Bilateral breath sounds clear to auscultation [] Abdomen: Bowel sounds normal, soft, no tenderness, no masses, no pulsatile masses. [] Skin: Warm, dry, no erythema, no rash. [] Back: No tenderness, no CVA tenderness. [] Extremities: No tenderness, no cyanosis, no clubbing, ROM intact, no edema. [] Neurologic: Alert and oriented X 3, normal motor function, normal sensory function, no focal deficits noted. [] Psychologic: Affect normal, judgement normal, mood normal. [] Current Patient Data Vital Signs Vital Signs Date Time Temp Pulse Resp B/P (MAP) Pulse Ox O2 Delivery O2 Flow Rate FiO2 09/04/18 19:28 98.3 79 20 100 Room Air EKG EKG [] Radiology/Procedures Radiology/Procedures [] Course & Med Decision Making Course & Med Decision Making Pertinent Labs and Imaging studies reviewed. (See chart for details) [] Final Impression Final Impression [] Problems: (1) Back pain Qualifiers: Qualified Codes: M54.5 - Low back pain Dragon Disclaimer Dragon Disclaimer This electronic medical record was generated, in whole or in part, using a voice recognition dictation system. ANIYAH DIAZ MD Sep 04, 2018 20:01
== END 2018-09-04 20:10 | disposition home or self-care (01) ==
LOC: ER 19:16
DX: M54.5 Low back pain (principal); X50.1XXA Overexertion from prolonged static or awkward postures, initial encounter; Y93.89 Activity, other specified; Y92.89 Other specified places as the place of occurrence of the external cause; Y99.0 Civilian activity done for income or pay
CPT/HCPCS: 99283

== ENCOUNTER 2018-12-19 11:39 | Emergency (ER) | payer OTHER ==
[~2018-12-19] VITALS: Ht 170.2 cm; Wt 84.0 kg
[~2018-12-19 11:39] MED LIST changes: +CYCL-331 PO
[2018-12-19] MEDS ORDERED: IV NORMAL SALINE 1,000ML 1,000 ML IV SCH (11:47)
--- NOTE | 2018-12-19 11:51 | PHYS DOC ---
Past History Past Medical History: Anemia, Anxiety, Depression, Kidney Stones Past Surgical History: , Other Alcohol Use: None Drug Use: None Adult General Chief Complaint Chief Complaint: FLANK PAIN HPI HPI Patient is a 33-year-old female who presents with complaint of right-sided flank pain that started about 2 hours ago. She states that she had a similar episode on Monday and states the pain had wrapped around to the front. She states that she has history of kidney stones and had been instructed to follow up with urologist in the past but has not had the opportunity to do so at this point. She states that currently her pain is about a 3 out of 10 but states that it times it goes up to a 6 out of 10. Currently she states the pain is primarily in her back. She reports feeling very nauseated at this time but has not vomited. She states that nothing seems to worsen or improve her symptoms. Review of Systems Review of Systems Constitutional: Denies fever or chills [] Respiratory: Denies cough or shortness of breath [] Cardiovascular: No additional information not addressed in HPI [] GI: Denies abdominal pain. Positive nausea without vomiting or diarrhea [] : Denies dysuria or hematuria [] Musculoskeletal: Complains of lower back pain [] Integument: Denies rash or skin lesions [] All other systems were reviewed and found to be within normal limits, except as documented in this note. Allergies Allergies Allergies Coded Allergies Type Severity Reaction Last Updated Verified No Known Drug Allergies 09/04/18 No Physical Exam Physical Exam Constitutional: Well developed, well nourished, no acute distress, non-toxic appearance. [] HENT: Normocephalic, atraumatic, bilateral external ears normal, oropharynx moist, no oral exudates, nose normal. [] Eyes: PERRLA, EOMI, conjunctiva normal, no discharge. [] Neck: Normal range of motion, no tenderness, supple. [] Cardiovascular:Heart rate regular rhythm, no murmur [] Lungs & Thorax: Bilateral breath sounds clear to auscultation [] Abdomen: Bowel sounds normal, soft, no tenderness. [] Skin: Warm, dry, no erythema, no rash. [] Extremities: No tenderness, no cyanosis, no clubbing, ROM intact. [] Neurologic: Alert and oriented X 3, no focal deficits noted. [] EKG EKG [] Radiology/Procedures Radiology/Procedures [] Impressions: PROCEDURE: CT ABDOMEN PELVIS WO CONTRAST CT abdomen pelvis without contrast dated 12/19/2018. No comparison available. Clinical data indication: Right flank pain since Monday. TECHNIQUE: Contiguous axial imaging of the abdomen and pelvis performed without the administration of IV or oral contrast. One or more of the following individualized dose reduction techniques were utilized for this examination: 1. Automated exposure control 2. Adjustment of the mA and/or kV according to patient size 3. Use of iterative reconstruction technique FINDINGS: Limited images of lung bases are clear. Heart size within normal limits. No pleural or pericardial effusion. Solid abdominal viscera not well evaluated in the absence of contrast material. No apparent attenuation abnormality of the liver or spleen. Gallbladder, pancreas and adrenal glands are unremarkable. There is a 3 calcific stones at the lower pole right kidney, largest of which measures 9 mm in size. 2 mm calcific stone at the upper pole left kidney. There is a 6 mm calcific stone at the left UPJ with mild left-sided pelvocaliectasis. The right renal collecting system is also mildly dilated, however no distal right ureteral stone is visualized. Unopacified GI tract normal in caliber and contour. No focal bowel wall thickening. No inflammatory stranding in the mesentery. The appendix is normal in caliber. No ascites or lymphadenopathy. Abdominal aorta normal in caliber. Images the pelvis show nondistended urinary bladder. No calcific bladder stone. Trace amount of free pelvic fluid. No pelvic adenopathy. There is a 3.7 cm right ovarian cyst. Bone windows show no acute findings. IMPRESSION: 1. There is a 6 mm calcific stone at the left UPJ with mild left-sided pelvocaliectasis. 2. There is also mild dilation of the right renal collecting system without evidence of right ureteral stone. This could be related to prior instrumentation or prior passage of stone. 3. Bilateral nephrolithiasis. There is a 3.7 cm right ovarian cyst. 4. Trace amount of free pelvic fluid, nonspecific. Electronically signed by: Christian Mazariegos MD (12/19/2018 1:04 PM) [id number] Course & Med Decision Making Course & Med Decision Making Pertinent Labs and Imaging studies reviewed. (See chart for details) [] Dragon Disclaimer Dragon Disclaimer This electronic medical record was generated, in whole or in part, using a voice recognition dictation system. Departure Departure: Impression: Primary Impression: Ureterolithiasis Disposition: 01 HOME, SELF-CARE Condition: STABLE Referrals: HUBERT BYRD MD (PCP) Patient Instructions: Kidney Stones Scripts Tamsulosin Hcl (FLOMAX) 0.4 Mg Cap.er.24h 0.4 MG PO DAILY for kidney stone, #7 CAP.SR Prov: GISELA CHADWICK Jr. DO 12/19/18 Ketorolac Tromethamine (KETOROLAC TROMETHAMINE) 10 Mg Tablet 1 TAB PO PRN Q6HRS PRN for PAIN, #20 TAB Prov: GISELA CHADWICK Jr. DO 12/19/18 Ondansetron Hcl (ZOFRAN) 4 Mg Tablet 4 MG PO Q6HRS PRN for NAUSEA, #15 TAB Prov: GISELA CHADWICK Jr. DO 12/19/18 Oxycodone Hcl/Acetaminophen (PERCOCET 7.5-325 MG TABLET ) 1 Each Tablet 1 TAB PO Q4HRS PRN for PAIN, #18 TAB Prov: GISELA CHADWICK Jr. DO 12/19/18 GISELA CHADWICK Jr. DO December 19, 2018 11:51
[2018-12-19] MEDS ORDERED: ONDANSETRON PF 4 MG/2 ML VIAL. IV ONE ×2 (12:00→13:30)
[2018-12-19] MEDS ORDERED: KETOROLAC 30 MG/ML VIAL. IV ONE (12:00)
[2018-12-19 12:13] LABS: BASO % 1 % (0-3); EOS # 0.1 x10^3/uL (0.0-0.7); EOS % 1 % (0-3); HEMOGLOBIN 11.5 g/dL (12.0-15.5); LYMPH # 3.1 x10^3/uL (1.0-4.8); LYMPH % 45 % (24-48); MEAN CORPUSCULAR HEMOGLOBIN 25 pg (25-35); MEAN CORPUSCULAR HGB CONC 33 g/dL (31-37); MEAN CORPUSCULAR VOLUME 77 fL (79-100); MONO # 0.5 x10^3/uL (0.0-1.1); MONO % 7 % (0-9); NEUT # 3.2 x10^3uL (1.8-7.7); NEUT % 46 % (31-73); PLATELET COUNT 302 x10^3/uL (140-400); RED BLOOD COUNT 4.52 x10^6/uL (3.50-5.40); RED CELL DISTRIBUTION WIDTH 15.1 % (11.5-14.5)
[2018-12-19 12:27] LABS: BACTERIA,URINE 0 /HPF (0-FEW); BILIRUBIN,URINE NEG (NEG); CLARITY,URINE HAZY; COLOR,URINE YELLOW; GLUCOSE,URINE NEG (NEG); NITRITE,URINE NEG (NEG); SQUAMOUS EPITHELIAL CELL,UR OCC /LPF; UROBILINOGEN,URINE 0.2 mg/dL (0.2 mg/dL); WBC,URINE 0 /HPF (0-4)
[2018-12-19 12:29] LABS: ALBUMIN 3.8 g/dL (3.4-5.0); CALCIUM 8.9 mg/dL (8.5-10.1); CREATININE 0.8 mg/dL (0.6-1.0); GFR 82.1; POTASSIUM 3.4 mmol/L (3.5-5.1); TOTAL BILIRUBIN 0.2 mg/dL (0.2-1.0); TOTAL PROTEIN 7.5 g/dL (6.4-8.2)
--- NOTE | 2018-12-19 13:07 | RAD ---
CT abdomen pelvis without contrast dated 12/19/2018. No comparison available. Clinical data indication: Right flank pain since Monday. TECHNIQUE: Contiguous axial imaging of the abdomen and pelvis performed without the administration of IV or oral contrast. One or more of the following individualized dose reduction techniques were utilized for this examination: 1. Automated exposure control 2. Adjustment of the mA and/or kV according to patient size 3. Use of iterative reconstruction technique FINDINGS: Limited images of lung bases are clear. Heart size within normal limits. No pleural or pericardial effusion. Solid abdominal viscera not well evaluated in the absence of contrast material. No apparent attenuation abnormality of the liver or spleen. Gallbladder, pancreas and adrenal glands are unremarkable. There is a 3 calcific stones at the lower pole right kidney, largest of which measures 9 mm in size. 2 mm calcific stone at the upper pole left kidney. There is a 6 mm calcific stone at the left UPJ with mild left-sided pelvocaliectasis. The right renal collecting system is also mildly dilated, however no distal right ureteral stone is visualized. Unopacified GI tract normal in caliber and contour. No focal bowel wall thickening. No inflammatory stranding in the mesentery. The appendix is normal in caliber. No ascites or lymphadenopathy. Abdominal aorta normal in caliber. Images the pelvis show nondistended urinary bladder. No calcific bladder stone. Trace amount of free pelvic fluid. No pelvic adenopathy. There is a 3.7 cm right ovarian cyst. Bone windows show no acute findings. IMPRESSION: 1. There is a 6 mm calcific stone at the left UPJ with mild left-sided pelvocaliectasis. 2. There is also mild dilation of the right renal collecting system without evidence of right ureteral stone. This could be related to prior instrumentation or prior passage of stone. 3. Bilateral nephrolithiasis. There is a 3.7 cm right ovarian cyst. 4. Trace amount of free pelvic fluid, nonspecific. Electronically signed by: Christian Mazariegos MD (12/19/2018 1:04 PM) [email or web address]
[2018-12-19] MEDS ORDERED: HYDROmorphone PF 1 MG/ML DISP.SYRIN IV ONE (13:30)
[2018-12-19] MEDS ORDERED: OXYC1TAB19 PO (14:00)
[2018-12-19] MEDS ORDERED: ONDA4TAB7 PO (14:00)
[2018-12-19] MEDS ORDERED: TAMS0.4C97 PO (14:00)
[2018-12-19] MEDS ORDERED: KETO10TA PO (14:00)
[2018-12-19 14:11] VITALS: BP 130/64
== END 2018-12-19 14:08 | disposition home or self-care (01) ==
LOC: ER 11:39
DX: N20.2 Calculus of kidney with calculus of ureter (principal); N83.201 Unspecified ovarian cyst, right side; F41.9 Anxiety disorder, unspecified; F32.9 Major depressive disorder, single episode, unspecified; Z87.440 Personal history of urinary (tract) infections; Z86.2 Personal history of diseases of the blood and blood-forming organs and certain disorders involving the immune mechanism; Z98.890 Other specified postprocedural states
CPT/HCPCS: 36415; 74176; 80053; 81001; 81025; 83690; 85025; 96374; 96375; 96376; 99285; J1170; J1885; J2405; J7030

== ENCOUNTER → 2019-03-07 | Outpatient (CLI) | payer OTHER ==
[~2019-03-07] MED LIST changes: +TAMS0.4C97 PO
[2019-03-07 15:38] LABS: CALCIUM 9.4 mg/dL (8.5-10.1); CREATININE 0.9 mg/dL (0.6-1.0); GFR 71.7; PHOSPHORUS 3.1 mg/dL (2.6-4.7); POTASSIUM 3.6 mmol/L (3.5-5.1); URIC ACID 4.6 mg/dL (2.6-6.0)
--- NOTE | 2019-03-07 15:38 | RAD ---
Single view of the abdomen 03/07/2019 INDICATION: Follow-up 6 mm left proximal ureteral stone COMPARISON STUDY: CT of the abdomen and pelvis without contrast December 19, 2018 FINDINGS: 6 mm stone seen at prior CT scan in the proximal left ureter is not identified radiographically on today's exam. There is a calcification projecting over the inferior right kidney consistent with the previously demonstrated nephrolithiasis. Calcification left pelvis is a phlebolith as identified on prior study. No definitive ureteral stone is identified radiographically. No acute osseous changes are seen. The bowel gas pattern is nonobstructive. IMPRESSION: 1. Previously seen proximal left ureteral stone is not visualized radiographically on today's exam. 2. Right nephrolithiasis Electronically signed by: Tucker Iglesias MD (03/07/2019 3:35 PM) [email or web address]
== END | disposition home or self-care (01) ==
LOC: LAB 14:59
PROVIDERS: ATTEND Urology
DX: N20.0 Calculus of kidney (principal); I87.8 Other specified disorders of veins
CPT/HCPCS: 36415; 74018; 80048; 83735; 84100; 84550

== ENCOUNTER 2019-03-21 21:07 | Emergency (ER) | payer OTHER ==
[~2019-03-21] VITALS: Ht 170.2 cm; Wt 81.6 kg
--- NOTE | 2019-03-21 21:29 | ED.ADGEN ---
Past History Past Medical History: Anemia, Anxiety, Depression, Kidney Stones, Migraines Past Surgical History: , Other Alcohol Use: None Drug Use: None Adult General Chief Complaint Chief Complaint ". I ve had this migraine for last 8 days... I ve had them before... but they usually do not last this long.. My doctor started me on propranolol for preventative. I did take some Toradol 10 mg for 3 days and that did not seem to help... I tried Imitrex before but they give me crushing chest pain... HPI HPI Patient is a 33 year old female who presents with above hx and complaints of headache x 8 days. Pt. describes headache as moderately severe... Headache has photophobia, sensitivity to sound, and nausea. . Patient follows Dr. Edward LOVING.. Patient has tried her home meds without much resolution of her headache. No history of fever or chills. No history cancer. No history immunosuppression. No history of trauma. No travel or specific ill contacts. Patient states her migraine headache is similar to previous but this one has lasted longer. Review of Systems Review of Systems Constitutional: Denies fever or chills [] Eyes: Denies change in visual acuity, redness, or eye pain [] HENT: Denies nasal congestion or sore throat [] Respiratory: Denies cough or shortness of breath [] Cardiovascular: No additional information not addressed in HPI [] GI: Denies abdominal pain, nausea, vomiting, bloody stools or diarrhea [] : Denies dysuria or hematuria [] Musculoskeletal: Denies back pain or joint pain [] Integument: Denies rash or skin lesions [] Neurologic: Denies headache, focal weakness or sensory changes [] Endocrine: Denies polyuria or polydipsia [] All other systems were reviewed and found to be within normal limits, except as documented in this note. Family History Family History Noncontributory Current Medications Current Medications Current Medications Medications (Trade) Dose Ordered Sig/Rekha Start Time Stop Time Status Last Admin Dose Admin Diphenhydramine HCl (Benadryl) 50 mg 1X ONCE 03/21/19 23:30 03/21/19 23:31 DC 03/22/19 00:28 50 MG Fentanyl Citrate (Fentanyl 2ml Vial) 75 mcg 1X ONCE 03/22/19 01:00 03/22/19 01:01 DC Ketorolac Tromethamine (Toradol 30mg Vial) 30 mg 1X ONCE 03/22/19 01:00 03/22/19 01:01 DC 03/22/19 00:40 30 MG Lactated Ringer's 1,000 ml @ 1,000 mls/hr Q1H 03/21/19 21:31 03/21/19 22:30 DC 03/21/19 22:10 1,000 MLS/HR Ondansetron HCl (Zofran) 8 mg 1X ONCE 03/21/19 21:45 03/21/19 21:46 DC 03/21/19 22:10 8 MG Prochlorperazine Edisylate (Compazine) 10 mg 1X ONCE 03/21/19 23:30 03/21/19 23:31 DC 03/22/19 00:28 10 MG Sodium Chloride 50 ml @ As Directed STK-MED ONCE 03/21/19 21:47 03/21/19 21:47 DC Valproic Acid (Depacon) 500 mg STK-MED ONCE 03/21/19 21:47 03/21/19 21:47 DC Valproic Acid 500 mg/Sodium Chloride 55 ml @ 55 mls/hr 1X STAT 03/21/19 21:31 03/21/19 22:30 DC 03/21/19 22:59 55 MLS/HR Allergies Allergies Allergies Coded Allergies Type Severity Reaction Last Updated Verified No Known Drug Allergies 09/04/18 No Physical Exam Physical Exam Constitutional: Well developed, well nourished, moderate acute distress, non- toxic appearance. [] HENT: Normocephalic, atraumatic, bilateral external ears normal, oropharynx moist, no oral exudates, nose normal. [] Eyes: PERRLA, EOMI, conjunctiva normal, no discharge. []Photophobia Neck: Normal range of motion, no tenderness, supple, no stridor. [] Cardiovascular:Heart rate regular rhythm, no murmur [] Lungs & Thorax: Bilateral breath sounds equal at apex auscultation [] Abdomen: Bowel sounds normal, soft, no tenderness, no masses, no pulsatile masses. [] Old surgery scar Skin: Warm, dry, no erythema, no rash. [] Back: No tenderness, no CVA tenderness. [] Extremities: No tenderness, no cyanosis, no clubbing, ROM intact, no edema. []Dog bite scar left ankle Neurologic: Alert and oriented X 3, normal motor function, normal sensory function, no focal deficits noted. []DTRs +2 patella and brachial. Route Sales Driver equal. Distal vibratory 128 intact. Psychologic: Affect anxious, judgement normal, mood normal. [] Current Patient Data Lab Results Laboratory Tests Test 03/21/19 22:00 03/21/19 22:15 03/21/19 22:33 White Blood Count 7.6 x10^3/uL (4.0-11.0) Red Blood Count 4.47 x10^6/uL (3.50-5.40) Hemoglobin 11.1 g/dL (12.0-15.5) L Hematocrit 34.4 % (36.0-47.0) L Mean Corpuscular Volume 77 fL (79-100) L Mean Corpuscular Hemoglobin 25 pg (25-35) Mean Corpuscular Hemoglobin Concent 32 g/dL (31-37) Red Cell Distribution Width 15.6 % (11.5-14.5) H Platelet Count 310 x10^3/uL (140-400) Neutrophils (%) (Auto) 38 % (31-73) Lymphocytes (%) (Auto) 51 % (24-48) H Monocytes (%) (Auto) 9 % (0-9) Eosinophils (%) (Auto) 1 % (0-3) Basophils (%) (Auto) 1 % (0-3) Neutrophils # (Auto) 2.9 x10^3uL (1.8-7.7) Lymphocytes # (Auto) 3.9 x10^3/uL (1.0-4.8) Monocytes # (Auto) 0.7 x10^3/uL (0.0-1.1) Eosinophils # (Auto) 0.1 x10^3/uL (0.0-0.7) Basophils # (Auto) 0.1 x10^3/uL (0.0-0.2) Erythrocyte Sedimentation Rate 20 (0-25) Prothrombin Time 9.7 SEC (9.4-11.4) Prothrombin Time INR 0.9 (0.9-1.1) Activated Partial Thromboplast Time 27 SEC (23-33) Sodium Level 140 mmol/L (136-145) Potassium Level 3.3 mmol/L (3.5-5.1) L Chloride Level 105 mmol/L (98-107) Carbon Dioxide Level 26 mmol/L (21-32) Anion Gap 9 (6-14) Blood Urea Nitrogen 12 mg/dL (7-20) Creatinine 1.0 mg/dL (0.6-1.0) Estimated GFR (Cockcroft-Gault) 63.5 Glucose Level 106 mg/dL (70-99) H Calcium Level 9.6 mg/dL (8.5-10.1) Magnesium Level 2.0 mg/dL (1.8-2.4) Total Bilirubin 0.1 mg/dL (0.2-1.0) L Direct Bilirubin < 0.1 mg/dL (0.0-0.2) Aspartate Amino Transferase (AST) 16 U/L (15-37) Alanine Aminotransferase (ALT) 19 U/L (14-59) Alkaline Phosphatase 54 U/L (46-116) Creatine Kinase 97 U/L (26-192) Troponin I Quantitative < 0.017 ng/mL (0-0.055) Total Protein 7.6 g/dL (6.4-8.2) Albumin 3.9 g/dL (3.4-5.0) Urine Collection Type Unknown Urine Color Straw Urine Clarity Hazy Urine pH 7.0 Urine Specific [place] 1.015 Urine Protein Neg (NEG-TRACE) Urine Glucose (UA) Neg mg/dL (NEG) Urine Ketones (Stick) Neg mg/dL (NEG) Urine Blood Trace (NEG) Urine Nitrite Neg (NEG) Urine Bilirubin Neg (NEG) Urine Urobilinogen Dipstick 0.2 mg/dL (0.2 mg/dL) Urine Leukocyte Esterase Mod (NEG) Urine RBC Occ /HPF (0-2) Urine WBC 1-4 /HPF (0-4) Urine Squamous Epithelial Cells Occ /LPF Urine Bacteria Mod /HPF (0-FEW) Urine Opiates Screen Neg (NEG) Urine Methadone Screen Neg (NEG) Urine Barbiturates Pos (NEG) Urine Phencyclidine Screen Neg (NEG) Urine Amphetamine/Methamphetamine Neg (NEG) Urine Benzodiazepines Screen Neg (NEG) Urine Cocaine Screen Neg (NEG) Urine Cannabinoids Screen Neg (NEG) Urine Ethyl Alcohol Neg (NEG) POC Urine HCG, Qualitative hcg negative (Negative) EKG EKG [] Radiology/Procedures Radiology/Procedures [][address] [address] IMAGING REPORT Signed PATIENT: ISMAEL LEVI ACCOUNT: [id number] : 1985 LOCATION: ER AGE: 33 SEX: F EXAM STATUS: REG ER ORD. PHYSICIAN: RACHANA SALCEDO MD REASON: Severe headache PROCEDURE: CT HEAD WO CONTRAST CT head without contrast PQRS statement: CT scans at this facility use dose reduction including either automated exposure control, iterative reconstructions, and /or weight based radiation dosing via mA and kV modification when appropriate to reduce radiation dose to as low as reasonably achievable. HISTORY: Severe headache. TECHNIQUE: Noncontrast CT imaging of the head was acquired. FINDINGS: No intracranial hemorrhage, mass, hydrocephalus, extra-axial fluid collections or infarction. No acute ischemic change. Imaged orbits, paranasal sinuses, mastoids and bones are unremarkable. IMPRESSION: Normal exam. Electronically signed by: Troy Zimmer MD (03/21/2019 10:38 PM) [facility] DICTATED AND SIGNED BY: TROY ZIMMER MD DATE: 03/21/19 [id number] CC: RACHANA SALCEDO MD; AALIYHA TORRES APRN ~ Course & Med Decision Making Course & Med Decision Making Pertinent Labs and Imaging studies reviewed. (See chart for details) Discussed benefits and complications of spinal tap-patient currently refusing spinal tap Patient elected to try a IV dose of Toradol. Patient reported near resolution of her headache. We discharged on on appears that with follow-up with her primary care. Patient follow-up with neurology. [] Final Impression Final Impression 1. Headache 2. Anemia Hgb 11.1 3. Elevated Lymphocytes 51 Dragon Disclaimer Dragon Disclaimer This electronic medical record was generated, in whole or in part, using a voice recognition dictation system. Dragon Disclaimer This chart was dictated in whole or in part using Voice Recognition software in a busy, high-work load, and often noisy Emergency Department environment. It may contain unintended and wholly unrecognized errors or omissions. Dragon Disclaimer This chart was dictated in whole or in part using Voice Recognition software in a busy, high-work load, and often noisy Emergency Department environment. It may contain unintended and wholly unrecognized errors or omissions. RACHANA SALCEDO MD Mar 21, 2019 21:28
[2019-03-21] MEDS ORDERED: VALPROATE SODIUM 500 MG in IV NORMAL SALINE 50ML 50 ML IV STA (21:31)
[2019-03-21] MEDS ORDERED: IV RINGERS SOLUTION,LACTATED 1,000 ML IV SCH (21:31)
[2019-03-21] MEDS ORDERED: ONDANSETRON PF 4 MG/2 ML VIAL. IV ONE (21:45)
[2019-03-21] MEDS ORDERED: IV NORMAL SALINE 50ML 50 ML ONE (21:47)
[2019-03-21] MEDS ORDERED: VALPROATE SODIUM 500 MG/5 ML VIAL IV ONE (21:47)
--- NOTE | 2019-03-21 22:41 | RAD ---
CT head without contrast PQRS statement: CT scans at this facility use dose reduction including either automated exposure control, iterative reconstructions, and /or weight based radiation dosing via mA and kV modification when appropriate to reduce radiation dose to as low as reasonably achievable. HISTORY: Severe headache. TECHNIQUE: Noncontrast CT imaging of the head was acquired. FINDINGS: No intracranial hemorrhage, mass, hydrocephalus, extra-axial fluid collections or infarction. No acute ischemic change. Imaged orbits, paranasal sinuses, mastoids and bones are unremarkable. IMPRESSION: Normal exam. Electronically signed by: Jorge Luis Zimmer MD (03/21/2019 10:38 PM) [facility]
[2019-03-21 22:43] LABS: BARBITURATES POS (NEG); BENZODIAZEPINES NEG (NEG); CANNABINOIDS NEG (NEG); COCAINE NEG (NEG); METHADONE NEG (NEG); OPIATES NEG (NEG); PHENCYCLIDINE NEG (NEG)
[2019-03-21 22:45] LABS: BASO # 0.1 x10^3/uL (0.0-0.2); BASO % 1 % (0-3); EOS # 0.1 x10^3/uL (0.0-0.7); EOS % 1 % (0-3); HEMATOCRIT 34.4 % (36.0-47.0); HEMOGLOBIN 11.1 g/dL (12.0-15.5); LYMPH # 3.9 x10^3/uL (1.0-4.8); LYMPH % 51 % (24-48); MEAN CORPUSCULAR HEMOGLOBIN 25 pg (25-35); MEAN CORPUSCULAR HGB CONC 32 g/dL (31-37); MEAN CORPUSCULAR VOLUME 77 fL (79-100); MONO # 0.7 x10^3/uL (0.0-1.1); MONO % 9 % (0-9); NEUT # 2.9 x10^3uL (1.8-7.7); NEUT % 38 % (31-73); PLATELET COUNT 310 x10^3/uL (140-400); RED BLOOD COUNT 4.47 x10^6/uL (3.50-5.40); RED CELL DISTRIBUTION WIDTH 15.6 % (11.5-14.5); WHITE BLOOD COUNT 7.6 x10^3/uL (4.0-11.0)
[2019-03-21 22:48] LABS: AMPHETAMINE/METHAMPHETAMINE NEG (NEG)
[2019-03-21 22:51] LABS: ALBUMIN 3.9 g/dL (3.4-5.0); ALK PHOS 54 U/L (46-116); ALT (SGPT) 19 U/L (14-59); ANION GAP 9 (6-14); AST (SGOT) 16 U/L (15-37); BLOOD UREA NITROGEN 12 mg/dL (7-20); CALCIUM 9.6 mg/dL (8.5-10.1); CARBON DIOXIDE 26 mmol/L (21-32); CHLORIDE 105 mmol/L (98-107); GFR 63.5; GLUCOSE 106 mg/dL (70-99); POTASSIUM 3.3 mmol/L (3.5-5.1); SODIUM 140 mmol/L (136-145); TOTAL BILIRUBIN 0.1 mg/dL (0.2-1.0); TOTAL PROTEIN 7.6 g/dL (6.4-8.2)
[2019-03-21 22:59] LABS: DIRECT BILIRUBIN < 0.1 mg/dL (0.0-0.2)
[2019-03-21 23:11] LABS: BACTERIA,URINE MOD /HPF (0-FEW); BILIRUBIN,URINE NEG (NEG); CLARITY,URINE HAZY; COLOR,URINE STRAW; GLUCOSE,URINE NEG (NEG); NITRITE,URINE NEG (NEG); RBC,URINE OCC /HPF (0-2); SQUAMOUS EPITHELIAL CELL,UR OCC /LPF; UROBILINOGEN,URINE 0.2 mg/dL (0.2 mg/dL)
[2019-03-21] MEDS ORDERED: PROCHLORPERAZINE 10 MG/2 ML VIAL. IV ONE (23:30)
[2019-03-21] MEDS ORDERED: diphenhydrAMINE 50 MG/ML VIAL IVP ONE (23:30)
[2019-03-21 23:49] LABS: SEDIMENTATION RATE 20 (0-25)
[2019-03-22] MEDS ORDERED: KETOROLAC 30 MG/ML VIAL. IV ONE (01:00)
[2019-03-22 01:27] VITALS: BP 111/57
[2019-03-22] MEDS ORDERED: PROC10TA57 PO (01:31)
[2019-03-22] MEDS ORDERED: BUTA1CAP31 PO (01:31)
== END 2019-03-22 01:40 | disposition home or self-care (01) ==
LOC: ER 21:07
DX: G43.909 Migraine, unspecified, not intractable, without status migrainosus (principal); D72.820 Lymphocytosis (symptomatic); D64.9 Anemia, unspecified; F41.9 Anxiety disorder, unspecified; Z87.442 Personal history of urinary calculi; Z86.2 Personal history of diseases of the blood and blood-forming organs and certain disorders involving the immune mechanism
CPT/HCPCS: 36415; 70450; 80048; 80076; 80307; 81001; 81025; 82550; 83735; 84443; 84484; 85025; 85610; 85651; 85730; 87086; 96365; 96375; 99285; J0780; J1200; J1885; J2405; J3490; J7120

== ENCOUNTER 2019-03-24 14:39 | Emergency (ER) | payer OTHER ==
[~2019-03-24] VITALS: Ht 170.2 cm; Wt 84.0 kg
[~2019-03-24 14:39] MED LIST changes: +PROC10TA57 PO
--- NOTE | 2019-03-24 15:14 | PHYS DOC ---
Past History Past Medical History: Anemia, Anxiety, Depression, Kidney Stones, Migraines Past Surgical History: Smoking: Non-smoker Alcohol Use: None Drug Use: None Adult General Chief Complaint Chief Complaint: HEADACHE HPI HPI Patient is a 33-year-old female presents with a headache like her usual migraine for the past 10 days. It is bilateral, vice-like, with photophobia and nausea. No vomiting. She was seen several days ago by her primary care physician who started her on propranolol without any improvement yet. She was seen additionally in the emergency department and had improvement of the pain with Compazine and Depakote administered. Pain returned approximately 36 hours ago and has not gone away with any home treatment. Pain is moderate to severe in intensity. No fever. No weakness in the arms or legs. Not worst headache of life.[] Review of Systems Review of Systems Constitutional: Denies fever or chills [] Eyes: Denies change in visual acuity, redness, or eye pain [] HENT: Denies nasal congestion or sore throat [] Respiratory: Denies cough or shortness of breath [] Cardiovascular: No chest pain or palpitations[] GI: Denies abdominal pain, nausea, vomiting, bloody stools or diarrhea [] : Denies dysuria or hematuria [] Musculoskeletal: Denies back pain or joint pain [] Integument: Denies rash or skin lesions [] Neurologic: Denies focal weakness or sensory changes, see history of present illness [] Endocrine: Denies polyuria or polydipsia [] All other systems were reviewed and found to be within normal limits, except as documented in this note. Allergies Allergies Allergies Coded Allergies Type Severity Reaction Last Updated Verified sumatriptan Allergy Unknown 03/24/19 Yes Physical Exam Physical Exam Constitutional: Well developed, well nourished, mild discomfort, non-toxic appearance. [] HENT: Normocephalic, atraumatic, bilateral external ears normal, oropharynx moist, no oral exudates, nose normal. [] Eyes: PERRLA, EOMI, conjunctiva normal, no discharge. [] Neck: Normal range of motion, no tenderness, supple, no stridor. [] Cardiovascular:Heart rate regular rhythm, no murmur [] Lungs & Thorax: Bilateral breath sounds clear to auscultation [] Abdomen: Not examined. [] Skin: Warm, dry, no erythema, no rash. [] Back: No tenderness, no CVA tenderness. [] Extremities: No tenderness, no cyanosis, no clubbing, ROM intact, no edema. [] Neurologic: Alert and oriented X 3, normal motor function, normal sensory function, no focal deficits noted. [] Psychologic: Affect normal, judgement normal, mood normal. [] Current Patient Data Vital Signs Vital Signs Date Time Temp Pulse Resp B/P (MAP) Pulse Ox O2 Delivery O2 Flow Rate FiO2 03/24/19 14:49 98.4 74 18 96 Room Air EKG EKG [] Radiology/Procedures Radiology/Procedures [] Course & Med Decision Making Course & Med Decision Making Pertinent Labs and Imaging studies reviewed. (See chart for details) ED course: Patient arrived, was placed in bed, and tolerated exam well. Was given medicine for the migraine which significantly improved her discomfort. She was discharged in improved condition. Medical decision making: There is no evidence of status migrainous, no evidence of intractable pain. No evidence of mass or bleed. No evidence of meningitis or encephalitis.[] Dragon Disclaimer Dragon Disclaimer This electronic medical record was generated, in whole or in part, using a voice recognition dictation system. Departure Departure: Impression: Primary Impression: Headache Disposition: HOME, SELF-CARE Condition: STABLE Referrals: AALIYAH TORRES APRN (PCP) Follow-up in 2 days Patient Instructions: Migraine Headache Additional Instructions: Drink plenty of fluids. Follow-up with your regular doctor in 2 days. At the onset of your next migraine, try 1/4 teaspoon of july dissolved in apple juice or water to break the cycle. Return to the ER if worsening pain, weakness, or any other concerns. Scripts Metoclopramide Hcl (REGLAN) 10 Mg Tablet 10 MG PO QID for nausea and vomiting, #30 TAB Prov: ELZBIETA SOLIMAN DO 03/24/19 Meloxicam (MELOXICAM) 7.5 Mg Tablet 7.5 MG PO DAILY for PAIN, #20 TAB Prov: ELZBIETA SOLIMAN DO 03/24/19 Problem Qualifiers Primary Impression: Headache Headache type: unspecified Headache chronicity pattern: episodic headache Intractability: not intractable Qualified Codes: R51 - Headache ELZBIETA SOLIMAN DO Mar 24, 2019 15:14
[2019-03-24] MEDS ORDERED: diphenhydrAMINE 50 MG/ML VIAL IM ONE (15:15)
[2019-03-24] MEDS ORDERED: METOCLOPRAMIDE HCL 10 MG/2 ML VIAL. IM ONE (15:15)
[2019-03-24] MEDS ORDERED: KETOROLAC 30 MG/ML VIAL. ONE ×2 (15:35→15:41)
[2019-03-24] MEDS ORDERED: KETOROLAC 60 MG/2 ML VIAL. IM ONE (15:40)
[2019-03-24] MEDS ORDERED: KETOROLAC 30 MG/ML VIAL. IM ONE (15:45)
[2019-03-24 15:47] VITALS: BP 110/65
[2019-03-24] MEDS ORDERED: METO10TA81 PO (16:30)
[2019-03-24] MEDS ORDERED: MELO7.5T29 PO (16:30)
== END 2019-03-24 16:34 | disposition home or self-care (01) ==
LOC: ER 14:39
DX: G43.909 Migraine, unspecified, not intractable, without status migrainosus (principal); Z87.442 Personal history of urinary calculi; Z86.2 Personal history of diseases of the blood and blood-forming organs and certain disorders involving the immune mechanism; Z88.8 Allergy status to other drugs, medicaments and biological substances
CPT/HCPCS: 96372; 99284; J1200; J1885; J2765

== ENCOUNTER → 2019-05-08 | Outpatient (CLI) | payer OTHER ==
[~2019-05-08] MED LIST changes: +MELO7.5T29 PO; +METO10TA81 PO
[2019-05-08 07:41] LABS: BASO # 0.1 x10^3/uL (0.0-0.2); BASO % 1 % (0-3); EOS # 0.1 x10^3/uL (0.0-0.7); EOS % 1 % (0-3); HEMATOCRIT 31.5 % (36.0-47.0); HEMOGLOBIN 10.3 g/dL (12.0-15.5); LYMPH # 2.4 x10^3/uL (1.0-4.8); LYMPH % 26 % (24-48); MEAN CORPUSCULAR HEMOGLOBIN 25 pg (25-35); MEAN CORPUSCULAR HGB CONC 33 g/dL (31-37); MEAN CORPUSCULAR VOLUME 77 fL (79-100); MONO # 0.7 x10^3/uL (0.0-1.1); MONO % 8 % (0-9); NEUT % 65 % (31-73); PLATELET COUNT 332 x10^3/uL (140-400); RED BLOOD COUNT 4.11 x10^6/uL (3.50-5.40); RED CELL DISTRIBUTION WIDTH 16.1 % (11.5-14.5); WHITE BLOOD COUNT 9.3 x10^3/uL (4.0-11.0)
[2019-05-08 07:54] LABS: ALBUMIN 3.5 g/dL (3.4-5.0); ALK PHOS 60 U/L (46-116); ALT (SGPT) 14 U/L (14-59); ANION GAP 10 (6-14); AST (SGOT) 13 U/L (15-37); BLOOD UREA NITROGEN 13 mg/dL (7-20); BUN/CREATININE RATIO 13 (6-20); CALCIUM 8.8 mg/dL (8.5-10.1); CARBON DIOXIDE 25 mmol/L (21-32); CHLORIDE 104 mmol/L (98-107); GFR 63.1; GLUCOSE 98 mg/dL (70-99); SODIUM 139 mmol/L (136-145)
[2019-05-08 07:56] LABS: TOTAL BILIRUBIN < 0.1 mg/dL (0.2-1.0)
[2019-05-08 08:07] LABS: BACTERIA,URINE MOD /HPF (0-FEW); BILIRUBIN,URINE NEG (NEG); CLARITY,URINE CLOUDY; COLOR,URINE YELLOW; GLUCOSE,URINE NEG (NEG); NITRITE,URINE NEG (NEG); UROBILINOGEN,URINE 0.2 mg/dL (0.2 mg/dL); WBC,URINE >40 /HPF (0-4)
[2019-05-08 17:12] LABS: FREE T4 0.97 ng/dL (0.76-1.46); THYROID STIM HORMONE (TSH) 2.108 uIU/mL (0.358-3.740)
[2019-05-08 23:06] LABS: HEMOGLOBIN A1C 5.7 % (4.8-5.6)
== END | disposition home or self-care (01) ==
LOC: LAB 07:11
PROVIDERS: ATTEND Naturopath
DX: R53.83 Other fatigue (principal); R51 Headache; R35.0 Frequency of micturition; N92.4 Excessive bleeding in the premenopausal period; R30.0 Dysuria; L65.9 Nonscarring hair loss, unspecified
CPT/HCPCS: 36415; 80053; 80061; 81001; 82728; 83036; 83525; 83540; 83550; 84439; 84443; 84481; 84550; 85025; 87086; 87186

== ENCOUNTER 2019-05-19 10:58 | Emergency (ER) | payer OTHER ==
[~2019-05-19] VITALS: Ht 170.2 cm; Wt 84.0 kg
[2019-05-19 11:00] VITALS: BP 114/69
[2019-05-19] MEDS ORDERED: CEPH-264 PO (11:18)
--- NOTE | 2019-05-19 11:18 | PHYS DOC ---
Past History Past Medical History: Anemia, Anxiety, Depression, Kidney Stones, Migraines, UTI Past Surgical History: Additional Past Surgical Histo: lithotripsy Smoking: Non-smoker Alcohol Use: None Drug Use: None Adult General Chief Complaint Chief Complaint: PAIN ON URINATION HPI HPI 34-year-old female presents with 2 week history of dysuria and urinary urgency. Patient reports she recently was diagnosed with a urinary tract infection and finished a seven-day course of Bactrim. Reports compliance with her medication. Reports symptoms have become worse again. Denies fever or chills. Denies flank pain. Denies trauma. Denies . Review of Systems Review of Systems Constitutional: Denies fever or chills Eyes: Denies redness or eye pain HENT: Denies nasal congestion or sore throat Respiratory: Denies cough or shortness of breath Cardiovascular: Denies chest pain or palpitations GI: Reports suprapubic abdominal pain and nausea; denies vomiting : Reports dysuria, urgency, and increased urinary frequency; denies hematuria Musculoskeletal: Denies back pain or joint pain Integument: Denies rash or skin lesions Neurologic: Denies headache, focal weakness or sensory changes Complete systems were reviewed and found to be within normal limits, except as documented in this note. Allergies Allergies Allergies Coded Allergies Type Severity Reaction Last Updated Verified sumatriptan Allergy Unknown 03/24/19 Yes Physical Exam Physical Exam Constitutional: Well developed, well nourished, no acute distress, non-toxic appearance HENT: Normocephalic, atraumatic Eyes: Conjunctiva normal, no discharge Neck: Normal range of motion, supple Cardiovascular: Heart rate normal, regular rhythm Lungs & Thorax: Bilateral breath sounds clear to auscultation, no wheezing Abdomen: Soft, no tenderness Skin: Warm, dry, no erythema, no rash Back: No tenderness, no CVA tenderness Neurologic: Alert and oriented X 3, no focal deficits noted Psychologic: Affect normal, judgement normal Current Patient Data Vital Signs Vital Signs Date Time Temp Pulse Resp B/P (MAP) Pulse Ox O2 Delivery O2 Flow Rate FiO2 05/19/19 11:00 98.0 75 16 100 Room Air EKG EKG [] Radiology/Procedures Radiology/Procedures [] Course & Med Decision Making Course & Med Decision Making Pertinent Lab studies reviewed. (See chart for details) Patient presents with history of present illness concerning for continued urinary tract infection. Patient's recent culture and sensitivity from 05/08/2019 noted Escherichia coli with sensitivity to Bactrim > 20. Given symptoms decision to start Keflex with improved sensitivity. Upreg negative. UA without significant signs of infection, however with history will empirically treat. She also reports she will take Pyridium and medications for nausea which she was previously prescribed. Patient stable for discharge with outpatient follow-up with PCP. Discussed findings and plan with patient, who acknowledges understanding and agreement. Dragon Disclaimer Dragon Disclaimer This electronic medical record was generated, in whole or in part, using a voice recognition dictation system. Departure Departure: Impression: Primary Impression: Dysuria Disposition: HOME, SELF-CARE Condition: STABLE Referrals: EB MEDINA MD (PCP) Patient Instructions: Urinary Tract Infection, [id number] Additional Instructions: Use previously prescribed nausea and Pyridium medications as needed. Take antibiotic until complete. Scripts Cephalexin (KEFLEX) 500 Mg Capsule 1 CAP PO TID for UTI for 7 Days, #21 CAP 0 Refills Prov: ANTHONY BUCHANAN DO 05/19/19 ANTHONY BUCHANAN DO May 19, 2019 11:18
[2019-05-19 11:23] LABS: BILIRUBIN,URINE NEG (NEG); CLARITY,URINE CLEAR; COLOR,URINE YELLOW; GLUCOSE,URINE NEG (NEG)
[2019-05-19 11:24] LABS: BACTERIA,URINE FEW /HPF (0-FEW); NITRITE,URINE NEG (NEG); RBC,URINE RARE /HPF (0-2); SQUAMOUS EPITHELIAL CELL,UR OCC /LPF; UROBILINOGEN,URINE 0.2 mg/dL (0.2 mg/dL)
[2019-05-19] MEDS ORDERED: CEPHALEXIN 250 MG CAPSULE PO ONE (11:30)
== END 2019-05-19 11:24 | disposition home or self-care (01) ==
LOC: ER 10:58
DX: R30.0 Dysuria (principal); R39.15 Urgency of urination; R35.0 Frequency of micturition; Z87.442 Personal history of urinary calculi; G43.909 Migraine, unspecified, not intractable, without status migrainosus; Z87.440 Personal history of urinary (tract) infections; Z86.2 Personal history of diseases of the blood and blood-forming organs and certain disorders involving the immune mechanism; Z98.890 Other specified postprocedural states; Z88.8 Allergy status to other drugs, medicaments and biological substances
CPT/HCPCS: 81001; 87086; 99284

== ENCOUNTER 2019-07-09 07:13 | Emergency (ER) | payer OTHER ==
[~2019-07-09 07:13] MED LIST changes: +CEPH-264 PO
--- NOTE | 2019-07-09 07:40 | PHYS DOC ---
Past History Past Medical History: Anemia, Anxiety, Depression, Kidney Stones, Migraines, UTI Past Surgical History: Additional Past Surgical Histo: lithotripsy Smoking: Non-smoker Alcohol Use: None Drug Use: None Adult General Chief Complaint Chief Complaint: ABDOMINAL PAIN HPI HPI Patient is a 34-year-old female who presents to the emergency department for evaluation. She states that at about 4:30 AM, she is awakened with pressure in her bladder area, and the urge to urinate. She has had some urinary frequency, and noticed some blood in extremity clots in her urine, but has not had any dysuria, or foul-smelling urine. She has not had any vaginal bleeding or discharge, and denies any other pelvic pain other than the urge to urinate. She does NOT have any flank pain at this time. She has had similar symptoms in the past with recurrences of her kidney stones, although she has usually had associated flank pain with these episodes. This is not present today. She has had some nausea but no vomiting. Her LMP was about 2 weeks ago. She has not had any fevers or chills. She had felt well until about 4:30 AM this morning when her symptoms began rather suddenly. There are no alleviating or exacerbating factors to her symptoms. She states that several months ago she had a 6 mm kidney stone, and when she had a follow-up [facility] they could no longer see this stone, but she did not notice that she had actually passed it. Review of Systems Review of Systems Constitutional: Denies fever or chills [] Eyes: Denies change in visual acuity, redness, or eye pain [] HENT: Denies nasal congestion or sore throat [] Respiratory: Denies cough or shortness of breath [] Cardiovascular: The patient denies any shortness of breath, chest pain, palpitations, or orthopnea [] GI: Denies abdominal pain,, vomiting, bloody stools or diarrhea [] : Denies vaginal bleeding or discharge [] Musculoskeletal: Denies back pain or joint pain [] Integument: Denies rash or skin lesions [] Neurologic: Denies headache, focal weakness or sensory changes [] Endocrine: Denies polyuria or polydipsia [] All other systems were reviewed and found to be within normal limits, except as documented in this note. Current Medications Current Medications Current Medications Medications (Trade) Dose Ordered Sig/Rekha Start Time Stop Time Status Last Admin Dose Admin Ketorolac Tromethamine (Toradol 30mg Vial) 30 mg 1X ONCE 07/09/19 07:30 07/09/19 07:31 UNV Ondansetron HCl (Zofran) 4 mg 1X ONCE 07/09/19 07:45 07/09/19 07:46 Sodium Chloride 1,000 ml @ 1,000 mls/hr Q1H 07/09/19 07:45 07/09/19 08:44 Allergies Allergies Allergies Coded Allergies Type Severity Reaction Last Updated Verified sumatriptan Allergy Unknown 03/24/19 Yes Physical Exam Physical Exam PHYSICAL EXAM: CONSTITUTIONAL: Well developed, well nourished HEAD: normocephalic, atraumatic EENT: PERRL, EOMI. Conjunctivae normal color, sclerae non-icteric; moist mucous membranes. NECK: Supple, non-tender; no meningismus. LUNGS: Lungs CTA, breathing even and unlabored. Normal air movement. HEART: Regular rate and rhythm, no murmur CHEST: No deformity; non-tender ABDOMEN: The abdomen is soft, and non-tender, no masses or bruits. EXTREM: Normal ROM; no deformity, no calf tenderness. Normal pulses palpable in all extremities. There is no pedal edema. SKIN: No rash; no diaphoresis NEURO: Alert; normal speech and cognition; CN's grossly intact; strength grossly intact without focal deficit. BACK: No CVA TTP. PSYCHIATRIC: Mildly anxious affect. Current Patient Data Lab Results Laboratory Tests Test 07/09/19 07:35 07/09/19 07:54 07/09/19 09:05 White Blood Count 9.8 x10^3/uL Red Blood Count 4.61 x10^6/uL Hemoglobin 11.3 g/dL Hematocrit 35.8 % Mean Corpuscular Volume 78 fL Mean Corpuscular Hemoglobin 25 pg Mean Corpuscular Hemoglobin Concent 32 g/dL Red Cell Distribution Width 17.6 % Platelet Count 268 x10^3/uL Neutrophils (%) (Auto) 67 % Lymphocytes (%) (Auto) 24 % Monocytes (%) (Auto) 8 % Eosinophils (%) (Auto) 1 % Basophils (%) (Auto) 1 % Neutrophils # (Auto) 6.5 x10^3uL Lymphocytes # (Auto) 2.3 x10^3/uL Monocytes # (Auto) 0.8 x10^3/uL Eosinophils # (Auto) 0.1 x10^3/uL Basophils # (Auto) 0.1 x10^3/uL Sodium Level 138 mmol/L Potassium Level 3.8 mmol/L Chloride Level 103 mmol/L Carbon Dioxide Level 23 mmol/L Anion Gap 12 Blood Urea Nitrogen 16 mg/dL Creatinine 0.8 mg/dL Estimated GFR (Cockcroft-Gault) 81.6 BUN/Creatinine Ratio 20 Glucose Level 97 mg/dL Calcium Level 8.9 mg/dL Total Bilirubin 0.2 mg/dL Aspartate Amino Transf (AST/SGOT) 19 U/L Alanine Aminotransferase (ALT/SGPT) 16 U/L Alkaline Phosphatase 52 U/L Total Protein 7.1 g/dL Albumin 3.7 g/dL Albumin/Globulin Ratio 1.1 Lipase 116 U/L Bedside Urine HCG, Qualitative hcg negative Urine Collection Type Void Urine Color Straw Urine Clarity Hazy Urine pH 6.5 Urine Specific [place] 1.010 Urine Protein Neg Urine Glucose (UA) Neg mg/dL Urine Ketones (Stick) Neg mg/dL Urine Blood Large Urine Nitrite Neg Urine Bilirubin Neg Urine Urobilinogen Dipstick 0.2 mg/dL Urine Leukocyte Esterase Mod Urine RBC 3-5 /HPF Urine WBC 11-20 /HPF Urine Squamous Epithelial Cells None /LPF Urine Bacteria Few /HPF Current Medications Medications (Trade) Dose Ordered Sig/Rekha Route PRN Reason Start Time Stop Time Status Last Admin Dose Admin Sodium Chloride 1,000 ml @ 1,000 mls/hr Q1H IV 07/09/19 07:45 07/09/19 08:44 DC 07/09/19 07:45 Ondansetron HCl (Zofran) 4 mg 1X ONCE IVP 07/09/19 07:45 07/09/19 07:46 DC 07/09/19 07:48 Ketorolac Tromethamine (Toradol 30mg Vial) 30 mg 1X ONCE IVP 07/09/19 07:45 07/09/19 07:46 DC 07/09/19 07:49 Morphine Sulfate (Morphine 4mg Syringe) 4 mg 1X ONCE IV 07/09/19 09:15 07/09/19 09:16 DC 07/09/19 09:08 EKG EKG [] Radiology/Procedures Radiology/Procedures PROCEDURE: CT ABDOMEN PELVIS WO CONTRAST CT STUDY OF THE ABDOMEN AND PELVIS WITHOUT CONTRAST CLINICAL INDICATIONS: Lower abdominal pain and hematuria. History of renal stones. TECHNIQUE: Noncontrast helical CT scanning of the abdomen and pelvis was performed. Without contrast, the sensitivity to detect organ pathology and GI tract pathology is decreased. PQRS compliance Statement One or more of the following individualized dose reduction techniques were utilized for this study: 1. Automated exposure control 2. Adjustment of the mA and/or kV according to patient size 3. Use of iterative reconstruction technique COMPARISON: December 19, 2018. FINDINGS: The liver and spleen and pancreas are unremarkable. The gallbladder is normal and no extrahepatic biliary ductal dilatation is seen. No hydronephrosis or hydroureter is seen. Bilateral renal stones are evident. No renal mass is seen on this noncontrast study. No perinephric fluid collection or inflammatory change is seen. No focal aneurysmal dilatation of the abdominal aorta is seen. No enlarged abdominal or pelvic lymphadenopathy is evident. The urinary bladder is not distended. No dominant ovarian cyst or mass is seen. The appendix is normal. Terminal ileum is unremarkable. No obstructive bowel pattern is evident. No free air or free fluid or mesenteric edema is evident. No lung base consolidative infiltrate is seen. No lytic process is evident. IMPRESSION: Nonobstructive bilateral renal stones. No hydronephrosis or hydroureter or ureteral stone is evident. No acute abnormality is evident otherwise.[] Course & Med Decision Making Course & Med Decision Making Pertinent Labs and Imaging studies reviewed. (See chart for details) [] 10:05 AM: Patient's condition remains stable. Discussed test results in detail, the need for close follow-up, and return precautions. Discussed the need for further outpatient follow-up of hematuria. Dragon Disclaimer Dragon Disclaimer This electronic medical record was generated, in whole or in part, using a voice recognition dictation system. Departure Departure: Impression: Primary Impression: UTI (urinary tract infection) Disposition: HOME, SELF-CARE Condition: STABLE Referrals: EB MEDINA MD (PCP) Patient Instructions: Hematuria, Adult, Urinary Tract Infection Scripts Phenazopyridine Hcl (PYRIDIUM) 200 Mg Tablet 1 TAB PO TID for urinary discomfort for 3 Days, #9 TAB 0 Refills Prov: CHELSIE MARIN MD 07/09/19 Sulfamethoxazole/Trimethoprim (BACTRIM 400-80 MG TABLET) 1 Each Tablet 1 TAB PO BID for - for 7 Days, #14 TAB 0 Refills Prov: CHELSIE MARIN MD 07/09/19 CHELSIE MARIN MD Jul 09, 2019 07:40
[2019-07-09] MEDS ORDERED: ONDANSETRON PF 4 MG/2 ML VIAL. IVP ONE (07:45)
[2019-07-09] MEDS ORDERED: IV NORMAL SALINE 1,000ML 1,000 ML IV SCH (07:45)
[2019-07-09] MEDS ORDERED: KETOROLAC 30 MG/ML VIAL. IVP ONE (07:45)
[2019-07-09 07:54] LABS: BASO # 0.1 x10^3/uL (0.0-0.2); BASO % 1 % (0-3); EOS # 0.1 x10^3/uL (0.0-0.7); EOS % 1 % (0-3); HEMATOCRIT 35.8 % (36.0-47.0); HEMOGLOBIN 11.3 g/dL (12.0-15.5); LYMPH # 2.3 x10^3/uL (1.0-4.8); LYMPH % 24 % (24-48); MEAN CORPUSCULAR HEMOGLOBIN 25 pg (25-35); MEAN CORPUSCULAR HGB CONC 32 g/dL (31-37); MEAN CORPUSCULAR VOLUME 78 fL (79-100); MONO # 0.8 x10^3/uL (0.0-1.1); MONO % 8 % (0-9); NEUT # 6.5 x10^3uL (1.8-7.7); NEUT % 67 % (31-73); PLATELET COUNT 268 x10^3/uL (140-400); RED BLOOD COUNT 4.61 x10^6/uL (3.50-5.40); RED CELL DISTRIBUTION WIDTH 17.6 % (11.5-14.5); WHITE BLOOD COUNT 9.8 x10^3/uL (4.0-11.0)
[2019-07-09 08:04] LABS: ALBUMIN 3.7 g/dL (3.4-5.0); ALBUMIN/GLOBULIN RATIO 1.1 (1.0-1.7); CALCIUM 8.9 mg/dL (8.5-10.1); CREATININE 0.8 mg/dL (0.6-1.0); GFR 81.6; POTASSIUM 3.8 mmol/L (3.5-5.1); TOTAL BILIRUBIN 0.2 mg/dL (0.2-1.0); TOTAL PROTEIN 7.1 g/dL (6.4-8.2)
--- NOTE | 2019-07-09 08:31 | RAD ---
CT STUDY OF THE ABDOMEN AND PELVIS WITHOUT CONTRAST CLINICAL INDICATIONS: Lower abdominal pain and hematuria. History of renal stones. TECHNIQUE: Noncontrast helical CT scanning of the abdomen and pelvis was performed. Without contrast, the sensitivity to detect organ pathology and GI tract pathology is decreased. PQRS compliance Statement One or more of the following individualized dose reduction techniques were utilized for this study: 1. Automated exposure control 2. Adjustment of the mA and/or kV according to patient size 3. Use of iterative reconstruction technique COMPARISON: December 19, 2018. FINDINGS: The liver and spleen and pancreas are unremarkable. The gallbladder is normal and no extrahepatic biliary ductal dilatation is seen. No hydronephrosis or hydroureter is seen. Bilateral renal stones are evident. No renal mass is seen on this noncontrast study. No perinephric fluid collection or inflammatory change is seen. No focal aneurysmal dilatation of the abdominal aorta is seen. No enlarged abdominal or pelvic lymphadenopathy is evident. The urinary bladder is not distended. No dominant ovarian cyst or mass is seen. The appendix is normal. Terminal ileum is unremarkable. No obstructive bowel pattern is evident. No free air or free fluid or mesenteric edema is evident. No lung base consolidative infiltrate is seen. No lytic process is evident. IMPRESSION: Nonobstructive bilateral renal stones. No hydronephrosis or hydroureter or ureteral stone is evident. No acute abnormality is evident otherwise. Electronically signed by: Aleks Reyna MD (07/09/2019 8:28 AM) [facility]
[2019-07-09] MEDS ORDERED: MORPHINE SULFATE 4 MG/ML DISP.SYRIN. IV ONE (09:15)
[2019-07-09 09:51] LABS: CLARITY,URINE HAZY; COLOR,URINE STRAW; GLUCOSE,URINE NEG (NEG)
[2019-07-09 09:52] LABS: BILIRUBIN,URINE NEG (NEG)
[2019-07-09 09:53] LABS: BACTERIA,URINE FEW /HPF (0-FEW); NITRITE,URINE NEG (NEG); UROBILINOGEN,URINE 0.2 mg/dL (0.2 mg/dL)
[2019-07-09] MEDS ORDERED: IV NORMAL SALINE 50ML 50 ML ONE (10:07)
[2019-07-09] MEDS ORDERED: cefTRIAXone SODIUM 1 GM VIAL ONE (10:07)
[2019-07-09] MEDS ORDERED: SULF1TAB23 PO (10:08)
[2019-07-09] MEDS ORDERED: PHEN-318 PO (10:08)
[2019-07-09 10:51] VITALS: BP 143/47
== END 2019-07-09 11:00 | disposition home or self-care (01) ==
LOC: ER 07:13
DX: N39.0 Urinary tract infection, site not specified (principal); G43.909 Migraine, unspecified, not intractable, without status migrainosus; Z87.440 Personal history of urinary (tract) infections; Z87.442 Personal history of urinary calculi; Z86.2 Personal history of diseases of the blood and blood-forming organs and certain disorders involving the immune mechanism; Z98.890 Other specified postprocedural states; Z88.8 Allergy status to other drugs, medicaments and biological substances
CPT/HCPCS: 36415; 74176; 80053; 81001; 81025; 83690; 85025; 87086; 96365; 96375; 99285; J0696; J1885; J2270; J2405; J7030

== ENCOUNTER → 2019-09-06 | Outpatient (CLI) | payer OTHER ==
[~2019-09-06] MED LIST changes: +PHEN-318 PO; +SULF1TAB23 PO
--- NOTE | 2019-09-06 16:17 | RAD ---
EXAM: ABDOMEN ONE VIEW. HISTORY: Abdominal pain. COMPARISON: 03/07/2019. FINDINGS: A frontal view of the abdomen is obtained. A right renal calculus measures 8 x 6 mm. A calcification in the left hemipelvis is stable and is likely a phlebolith. There are no distended small bowel loops. There is gas distally. IMPRESSION: 1. 8 mm right renal calculus. 2. No evidence of obstruction. Electronically signed by: Dawood Nation MD (09/06/2019 4:14 PM) [facility]
== END | disposition home or self-care (01) ==
LOC: DXRAD 12:28
PROVIDERS: ATTEND Urology
DX: N20.0 Calculus of kidney (principal)
CPT/HCPCS: 74018

== ENCOUNTER 2019-11-20 11:24 | Emergency (ER) | payer OTHER ==
[~2019-11-20] VITALS: Ht 170.2 cm; Wt 83.8 kg
--- NOTE | 2019-11-20 11:59 | PHYS DOC ---
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 She has a known 8 mm right kidney stone imaged in July by CT. She was to have a lithotripsy with consider urology, though this was postponed as a consult was of his current pandemic. Associated nausea but no vomiting. Review of Systems: Review of Systems: General: No fevers, chills. Eyes: No blurred vision, diplopia. ENT: No nasal congestion, sore throat. CV: No chest pain, edema. Resp: No shortness of breath, cough. GI: No vomiting. Reports right-sided flank pain, nausea. : No dysuria, hematuria. Neuro: No headache, dizziness, weakness. MSK: No myalgia, arthralgia Skin: No acute rash, lesion. Heart Score: Risk Factors: Risk Factors: DM, Current or recent (<one month) smoker, HTN, HLP, family history of CAD, obesity. Risk Scores: Score 0 - 3: 2.5% MACE over next 6 weeks - Discharge Home Score 4 - 6: 20.3% MACE over next 6 weeks - Admit for Clinical Observation Score 7 - 10: 72.7% MACE over next 6 weeks - Early Invasive Strategies Allergies: Allergies: Allergies Coded Allergies Type Severity Reaction Last Updated Verified sumatriptan Allergy Unknown 03/24/19 Yes Physical Exam: PE: Gen: NAD. Well nourished. Head: NC/AT Eyes: No scleral icterus. No conjunctival injection. ENT: MMM. Neck: Supple. CV: RRR. Peripheral pulses intact. Resp: CTAB. Abd: Soft. NT. ND. Right-sided flank percussion tenderness. No rebound, guarding, rigidity. MSK: No peripheral cyanosis. No edema. Neuro: Awake and alert. Skin: Warm. Dry. Psych: Appropriate mood & affect. Current Patient Data: Vital Signs: Vital Signs Date Time Temp Pulse Resp B/P (MAP) Pulse Ox O2 Delivery O2 Flow Rate FiO2 4/15/20 11:42 97.3 88 18 151/73 (99) 99 EKG: EKG: [] Radiology/Procedures: Radiology/Procedures: PROCEDURE: CT ABDOMEN PELVIS WO CONTRAST Axial CT images of the abdomen and pelvis with coronal and sagittal reformats were performed without contrast per renal colic protocol. Exposure: One or more of the following individualized dose reduction techniques were utilized for this examination: 1. Automated exposure control 2. Adjustment of the mA and/or kV according to patient size 3. Use of iterative reconstruction technique Indication: Right flank pain Comparison: 10/23/2018. Findings: There are multiple right-sided collecting system calculi. No ureteral or bladder calculi are identified. No hydronephrosis, perinephric fat stranding, or hydroureter are seen bilaterally. There is fluid in the endometrial canal, likely physiologic. There are multiple right-sided follicles identified. The appendix is visualized and is unremarkable in appearance. There is trace fluid in the cul-de-sac. The remainder of the non contrasted abdomen and pelvis is normal in appearance, although evaluation is limited on an unenhanced exam. Impression: 1. Multiple stable right-sided nonobstructing collecting system calculi. No ureteral or bladder calculi. No hydronephrosis or hydroureter. 2. Appendix is visualized and is unremarkable. Electronically signed by: Daniel Sanches MD (11/20/2019 12:24 PM) [id number] Course & Med Decision Making: Course & Med Decision Making Pertinent Labs and Imaging studies reviewed. (See chart for details) In summary, 34-year-old female with known right-sided nephrolithiasis, who presents for evaluation of acute right-sided flank pain associated with nausea. Unremarkable physical examination. Hemolytically stable. No fever. Lab work is otherwise unrevealing as well. Urinalysis not indicative of UTI. CT abdomen/pelvis without contrast is obtained to evaluate for interval changes from her prior CT in July. There are multiple right-sided kidney stones, but no ureterolithiasis or hydronephrosis. Received IV fluids, fentanyl, Toradol, now with morphine for pain control. Likely renal colic. Stable for discharge with outpatient urology follow-up with Urology. Return precautions given. Rosangela Disclaimer: Rosangela Disclaimer: This electronic medical record was generated, in whole or in part, using a voice recognition dictation system. Departure Departure: Impression: Primary Impression: Right nephrolithiasis Disposition: HOME, SELF-CARE Condition: STABLE Referrals: EB MEDINA MD (PCP) Patient Instructions: Kidney Stones Additional Instructions: Follow up with Urology once you are able to for possible lithotripsy. Scripts Ondansetron Hcl (ZOFRAN) 4 Mg Tablet 1 TAB PO PRN Q6HRS PRN for NAUSEA, #12 TAB Prov: LE,DYLON H DO 11/20/19 Hydrocodone Bit/Acetaminophen (NORCO 5-325 TABLET) 1 Each Tablet 1 TAB PO Q8HRS for pain, #15 TAB Prov: LE,DYLON H DO 11/20/19 LE,DYLON H DO Nov 20, 2019 11:59
[2019-11-20] MEDS ORDERED: KETOROLAC 15 MG/ML VIAL. IVP ONE (12:00)
[2019-11-20] MEDS ORDERED: ONDANSETRON PF 4 MG/2 ML VIAL. IVP ONE (12:00)
[2019-11-20 12:26] LABS: BASO % 1 % (0-3); EOS # 0.1 x10^3/uL (0.0-0.7); EOS % 1 % (0-3); HEMATOCRIT 37.2 % (36.0-47.0); HEMOGLOBIN 12.2 g/dL (12.0-15.5); LYMPH # 2.5 x10^3/uL (1.0-4.8); LYMPH % 41 % (24-48); MEAN CORPUSCULAR HEMOGLOBIN 29 pg (25-35); MEAN CORPUSCULAR HGB CONC 33 g/dL (31-37); MEAN CORPUSCULAR VOLUME 88 fL (79-100); MONO # 0.4 x10^3/uL (0.0-1.1); MONO % 7 % (0-9); NEUT # 3.1 x10^3uL (1.8-7.7); NEUT % 51 % (31-73); PLATELET COUNT 273 x10^3/uL (140-400); RED BLOOD COUNT 4.21 x10^6/uL (3.50-5.40); RED CELL DISTRIBUTION WIDTH 14.5 % (11.5-14.5); WHITE BLOOD COUNT 6.1 x10^3/uL (4.0-11.0)
--- NOTE | 2019-11-20 12:27 | RAD ---
Axial CT images of the abdomen and pelvis with coronal and sagittal reformats were performed without contrast per renal colic protocol. Exposure: One or more of the following individualized dose reduction techniques were utilized for this examination: 1. Automated exposure control 2. Adjustment of the mA and/or kV according to patient size 3. Use of iterative reconstruction technique Indication: Right flank pain Comparison: 10/23/2018. Findings: There are multiple right-sided collecting system calculi. No ureteral or bladder calculi are identified. No hydronephrosis, perinephric fat stranding, or hydroureter are seen bilaterally. There is fluid in the endometrial canal, likely physiologic. There are multiple right-sided follicles identified. The appendix is visualized and is unremarkable in appearance. There is trace fluid in the cul-de-sac. The remainder of the non contrasted abdomen and pelvis is normal in appearance, although evaluation is limited on an unenhanced exam. Impression: 1. Multiple stable right-sided nonobstructing collecting system calculi. No ureteral or bladder calculi. No hydronephrosis or hydroureter. 2. Appendix is visualized and is unremarkable. Electronically signed by: Daniel Sanches MD (11/20/2019 12:24 PM) [id number]
[2019-11-20 12:33] LABS: CALCIUM 9.2 mg/dL (8.5-10.1); CREATININE 0.9 mg/dL (0.6-1.0); GFR 71.3; POTASSIUM 3.8 mmol/L (3.5-5.1)
[2019-11-20 12:38] LABS: BACTERIA,URINE FEW /HPF (0-FEW); BILIRUBIN,URINE NEG (NEG); CLARITY,URINE CLEAR; COLOR,URINE YELLOW; GLUCOSE,URINE NEG (NEG); NITRITE,URINE NEG (NEG); SQUAMOUS EPITHELIAL CELL,UR MOD /LPF; UROBILINOGEN,URINE 0.2 mg/dL (0.2 mg/dL)
[2019-11-20 12:39] LABS: ALBUMIN 3.8 g/dL (3.4-5.0); ALBUMIN/GLOBULIN RATIO 1.1 (1.0-1.7); MAGNESIUM 1.8 mg/dL (1.8-2.4); TOTAL BILIRUBIN 0.1 mg/dL (0.2-1.0); TOTAL PROTEIN 7.2 g/dL (6.4-8.2)
[2019-11-20] MEDS ORDERED: MORPHINE SULFATE 4 MG/ML DISP.SYRIN. IV ONE (12:45)
[2019-11-20 13:09] VITALS: BP 108/60
[2019-11-20] MEDS ORDERED: HYDR-3165 PO (13:16)
[2019-11-20] MEDS ORDERED: ONDA4TAB7 PO (13:16)
== END 2019-11-20 13:23 | disposition home or self-care (01) ==
LOC: ER 11:24
DX: N20.0 Calculus of kidney (principal); Z98.890 Other specified postprocedural states; Z88.8 Allergy status to other drugs, medicaments and biological substances
CPT/HCPCS: 36415; 74176; 80053; 81001; 81025; 83690; 83735; 85025; 96374; 96375; 99284; J1885; J2270; J2405; J3010

== ENCOUNTER → 2019-11-22 | Outpatient (CLI) | payer OTHER ==
[2019-11-20 13:09] VITALS: BP 108/60
[~2019-11-22] MED LIST changes: +HYDR-3165 PO
== END | disposition home or self-care (01) ==
LOC: LAB 12:43
PROVIDERS: ATTEND Internal Medicine Cardiovascular Disease
DX: R06.02 Shortness of breath (principal); Z20.828 Contact with and (suspected) exposure to other viral communicable diseases
CPT/HCPCS: 87635

== ENCOUNTER → 2019-12-17 | Outpatient (CLI) | payer OTHER ==
[2019-11-20 13:09] VITALS: BP 108/60
== END | disposition home or self-care (01) ==
LOC: LAB 12:22
PROVIDERS: ATTEND Internal Medicine Cardiovascular Disease
DX: Z20.828 Contact with and (suspected) exposure to other viral communicable diseases (principal)
CPT/HCPCS: 87635

== ENCOUNTER → 2020-02-20 | Outpatient (CLI) | payer OTHER | END | disposition home or self-care (01) | LOC: LAB 13:02 | PROVIDERS: ATTEND Internal Medicine Cardiovascular Disease | DX: R06.02 Shortness of breath (principal); Z20.828 Contact with and (suspected) exposure to other viral communicable diseases | CPT/HCPCS: 36415; U0003 ==

== ENCOUNTER → 2020-03-02 | Outpatient (CLI) | payer OTHER | END | disposition home or self-care (01) | LOC: LAB 10:30 | PROVIDERS: ATTEND Internal Medicine Cardiovascular Disease | DX: R05 Cough (principal); R06.03 Acute respiratory distress; Z20.828 Contact with and (suspected) exposure to other viral communicable diseases | CPT/HCPCS: C9803; U0003; 36415 ==

== ENCOUNTER 2020-03-09 14:18 | Emergency (ER) | payer OTHER ==
[~2020-03-09] VITALS: Ht 170.2 cm; Wt 83.0 kg
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
[2020-03-09] MEDS ORDERED: ACETAMINOPHEN 500 MG TABLET PO ONE (14:45)
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
[2020-03-09 15:25] VITALS: BP 107/64
== END 2020-03-09 15:30 | disposition home or self-care (01) ==
LOC: ER 14:18
DX: S89.91XA Unspecified injury of right lower leg, initial encounter (principal); Z87.442 Personal history of urinary calculi; Z88.8 Allergy status to other drugs, medicaments and biological substances; W50.0XXA Accidental hit or strike by another person, initial encounter; Y93.89 Activity, other specified; Y92.89 Other specified places as the place of occurrence of the external cause; Y99.0 Civilian activity done for income or pay
CPT/HCPCS: 73564; 99283